=== PATIENT | male | born 1945 | race Caucasian/White ===

== ENCOUNTER 2021-10-28 17:09 | Inpatient (IN) ==
[2021-10-28] MEDS ORDERED: ONDANSETRON 4 MG/2 ML VIAL IV PRN (17:30)
[2021-10-28] MEDS ORDERED: MAGNESIUM HYDROXIDE SUSP 30 ML UDCUP PO PRN (17:30)
[2021-10-28] MEDS ORDERED: ACETAMINOPHEN 325 MG TABLET PO PRN (17:30)
[2021-10-28] MEDS ORDERED: ZALEPLON 5 MG CAPSULE PO PRN (17:44)
[2021-10-28] MEDS ORDERED: LEVOFLOXACIN INJ 750 MG/150 ML PREMIX IV SCH (18:00)
[2021-10-28 18:50] LABS: Basophils # 0.1 10*3/uL (0.0-0.2); Basophils % 0.8 % (0.0-0.8); Eosinophils % 0.3 % (0.00-10.9); Hematocrit 42.1 VOL% (42.0-52.0); Hemoglobin 13.4 GM/DL (14.0-18.0); Immature Granulocytes % 0.6 %; Immature Granulocytes Absolute 0.05 #; Lymphocytes # 0.9 10*3/uL (1.4-4.0); Lymphocytes % 11.2 % (21.2-54.2); Mean Corpuscular HGB Conc 31.8 GM/DL (32-36); Mean Corpuscular Volume 93.3 FL (87-102); Mean Platelet Volume 10.7 FL (9.6-12.0); Monocytes % 12.9 % (1.7-12.7); Neutrophils % 74.2 % (38.7-73.9); Platelet Count 160 T/CUMM (130-400); Red Blood Count 4.51 MC/CUMM (3.8-5.5); Red Cell Distribution Width 15.2 % (9.3-17.3); White Blood Count 7.7 T/CUMM (4-12)
[2021-10-28 19:08] LABS: Albumin 2.7 G/DL (3.4-5.0); Bilirubin,Total 1.4 MG/DL (0.20-1.00); Calcium 8.5 MG/DL (8.5-10.1); Osmolality,Calculated 278.7 MOS/KG (273-304); Potassium 4.3 MMOL/L (3.5-5.1)
[2021-10-28] MEDS: DEXTROSE 5% NACL 0.45% 1,000 ML IV SCH (19:31)
[2021-10-28] MEDS: CARBIDOPA/LEVODOPA CR 25-100 MG TABLET PO SCH (21:40)
[2021-10-28] MEDS: AMIODARONE 200 MG TABLET PO SCH (21:40)
[2021-10-28] MEDS: DOCUSATE SODIUM 100 MG CAPSULE PO SCH (21:41)
[2021-10-28] MEDS: ATORVASTATIN 10 MG TABLET PO SCH (21:41)
[2021-10-28] MEDS: cefTRIAXone 1,000 MG in SODIUM CHLORIDE 0.9% 100 ML IV SCH (21:44)
[2021-10-29 01:19] LABS: Bilirubin,Urine Negative (Negative); Blood, Urine Small mg/dL (Negative); Glucose,Urine (UA) Negative (Negative); Hyaline Casts,Urine 1 /LPF (0-3); Ketones,Urine Negative (Negative); Mucus,Urine Occasional /LPF (Occasional); Nitrite,Urine Negative (Negative); Protein,Urine 100 MG/DL; RBC,Urine 5 /HPF (0-4); Squamous Epithelial Cell,Urine Occasional /HPF (0-10); Urine Appearance CLEAR (Clear); Urine Color Amber (Yellow); Urine Specific Gravity 1.024 (1.001-1.035)
[2021-10-29] MEDS: DEXTROSE 5% NACL 0.45% 1,000 ML IV SCH (05:50)
[2021-10-29 06:27] LABS: Basophils # 0.1 10*3/uL (0.0-0.2); Basophils % 0.8 % (0.0-0.8); Eosinophils # 0.1 10*3/uL (0.0-0.87); Eosinophils % 1.2 % (0.00-10.9); Hematocrit 38.6 VOL% (42.0-52.0); Hemoglobin 12.5 GM/DL (14.0-18.0); Immature Granulocytes % 0.6 %; Immature Granulocytes Absolute 0.04 #; Lymphocytes # 1.5 10*3/uL (1.4-4.0); Lymphocytes % 22.8 % (21.2-54.2); Mean Corpuscular HGB Conc 32.4 GM/DL (32-36); Mean Corpuscular Volume 94.1 FL (87-102); Mean Platelet Volume 10.3 FL (9.6-12.0); Neutrophils % 55.6 % (38.7-73.9); Platelet Count 155 T/CUMM (130-400); Red Cell Distribution Width 15.1 % (9.3-17.3); White Blood Count 6.5 T/CUMM (4-12)
[2021-10-29 06:37] LABS: INR 1.9; PT Patient Result 20.1 SECS (10.5-12.0)
[2021-10-29 06:53] LABS: Albumin 2.4 G/DL (3.4-5.0); Bilirubin,Total 1.6 MG/DL (0.20-1.00); Calcium 8.3 MG/DL (8.5-10.1); Osmolality,Calculated 282.3 MOS/KG (273-304); Potassium 3.1 MMOL/L (3.5-5.1); Total Protein 6.2 G/DL (6.4-8.2)
[2021-10-29 06:54] LABS: Risk Ratio 3.92; VLDL Cholesterol 19.2 MG/DL
[2021-10-29 06:55] LABS: Atypical Lymphocytes Few; Eosinophils 4 % (0-10); Hypochromasia Slight; Lymphocytes 19 % (20-55); Microcytosis Slight; Platelet Estimate Adequate; Segmented Neutrophils 61 % (50-85); Total Cells Counted 100
[2021-10-29] MEDS: WARFARIN 5 MG TABLET PO SCH ×2 (09:01→17:04)
[2021-10-29 09:19] LABS: Hepatitis B Core IgM Quant 0.14 Index; Hepatitis B Surface Ag Quant < 0.10 Index; Hepatitis B Surface Ag Result Non-Reactive (NonReactive); Hepatitis C Virus Ab Quant 0.14 Index; Hepatitis C Virus Ab Result Non-Reactive (NonReactive)
[2021-10-29] MEDS: METOPROLOL TARTRATE 50 MG TABLET PO SCH (09:53)
[2021-10-29] MEDS: AMIODARONE 200 MG TABLET PO SCH ×2 (09:53→20:36)
[2021-10-29] MEDS: PANTOPRAZOLE 40 MG TABLET PO SCH (09:53)
[2021-10-29] MEDS: POTASSIUM CHLORIDE 20 MEQ TABLET PO SCH ×2 (09:53→20:24)
[2021-10-29] MEDS: LOSARTAN 50 MG TABLET PO SCH (09:53)
[2021-10-29] MEDS: MULTIVITAMIN (OCUVITE) TABLET PO SCH (09:53)
[2021-10-29] MEDS: DOCUSATE SODIUM 100 MG CAPSULE PO SCH ×2 (09:53→20:24)
[2021-10-29] MEDS: POTASSIUM CHLORIDE RIDER 10 MEQ/100 ML PREMIX IV SCH ×3 (09:54→14:34)
[2021-10-29] MEDS: ASPIRIN EC 81 MG TABLET PO SCH (09:54)
[2021-10-29] MEDS ORDERED: POTASSIUM CHLORIDE RIDER 10 MEQ/100 ML PREMIX IV SCH (14:30)
[2021-10-29] MEDS: DEXT 5% NACL 0.45% KCL 20 MEQ 20 MEQ/1,000 ML BAG IV SCH ×2 (16:36→20:36)
[2021-10-29] MEDS: ATORVASTATIN 10 MG TABLET PO SCH (20:24)
[2021-10-29] MEDS: cefTRIAXone 1,000 MG in SODIUM CHLORIDE 0.9% 100 ML IV SCH (20:24)
[2021-10-29] MEDS: CARBIDOPA/LEVODOPA CR 25-100 MG TABLET PO SCH (20:24)
[2021-10-30] MEDS: DEXT 5% NACL 0.45% KCL 20 MEQ 20 MEQ/1,000 ML BAG IV SCH ×5 (03:05→23:05)
[2021-10-30 06:04] LABS: INR 1.7; PT Patient Result 18.5 SECS (10.5-12.0)
[2021-10-30 06:05] LABS: Basophils # 0.1 10*3/uL (0.0-0.2); Basophils % 0.9 % (0.0-0.8); Eosinophils # 0.2 10*3/uL (0.0-0.87); Eosinophils % 2.2 % (0.00-10.9); Hematocrit 37.6 VOL% (42.0-52.0); Hemoglobin 12.5 GM/DL (14.0-18.0); Immature Granulocytes % 0.8 %; Immature Granulocytes Absolute 0.06 #; Lymphocytes # 2.4 10*3/uL (1.4-4.0); Lymphocytes % 30.1 % (21.2-54.2); Mean Corpuscular HGB Conc 33.2 GM/DL (32-36); Mean Corpuscular Volume 94.2 FL (87-102); Mean Platelet Volume 10.7 FL (9.6-12.0); Monocytes % 18.6 % (1.7-12.7); Neutrophils % 47.4 % (38.7-73.9); Platelet Count 148 T/CUMM (130-400); Red Blood Count 3.99 MC/CUMM (3.8-5.5); Red Cell Distribution Width 15.1 % (9.3-17.3); White Blood Count 7.9 T/CUMM (4-12)
[2021-10-30 06:18] LABS: Albumin 2.2 G/DL (3.4-5.0); Bilirubin,Total 1.4 MG/DL (0.20-1.00); Osmolality,Calculated 277.5 MOS/KG (273-304); Potassium 3.9 MMOL/L (3.5-5.1); Total Protein 5.9 G/DL (6.4-8.2)
[2021-10-30 06:34] LABS: Band Neutrophils 1 % (0-10); Eosinophils 3 % (0-10); Hypochromasia Slight; Lymphocytes 24 % (20-55); Microcytosis Slight; Platelet Estimate Adequate; Segmented Neutrophils 60 % (50-85); Total Cells Counted 100
[2021-10-30 06:35] LABS: Atypical Lymphocytes Few
[2021-10-30] MEDS: METOPROLOL TARTRATE 50 MG TABLET PO SCH (10:01)
[2021-10-30] MEDS: MULTIVITAMIN (OCUVITE) TABLET PO SCH (10:01)
[2021-10-30] MEDS: LEVOTHYROXINE 100 MCG TABLET PO SCH (10:01)
[2021-10-30] MEDS: POTASSIUM CHLORIDE 20 MEQ TABLET PO SCH ×2 (10:01→20:08)
[2021-10-30] MEDS: LOSARTAN 50 MG TABLET PO SCH (10:02)
[2021-10-30] MEDS: DOCUSATE SODIUM 100 MG CAPSULE PO SCH ×2 (10:02→20:08)
[2021-10-30] MEDS: AMIODARONE 200 MG TABLET PO SCH ×2 (10:02→20:09)
[2021-10-30] MEDS: PANTOPRAZOLE 40 MG TABLET PO SCH (10:02)
[2021-10-30] MEDS: ASPIRIN EC 81 MG TABLET PO SCH (10:02)
[2021-10-30] MEDS ORDERED: BISACODYL 5 MG TABLET PO ONE (13:05)
[2021-10-30] MEDS ORDERED: LACTULOSE 20 GM/30 ML UDCUP PO ONE ×2 (13:05→19:30)
[2021-10-30 13:46] LABS: Mycoplasma pneumoniae Ab Inter SEE COMMENTS; Mycoplasma pneumoniae Ab, IgG Positive (Negative); Mycoplasma pneumoniae Ab, IgM Negative (Negative)
[2021-10-30] MEDS: WARFARIN 5 MG TABLET PO SCH (18:20)
[2021-10-30] MEDS: CARBIDOPA/LEVODOPA CR 25-100 MG TABLET PO SCH (20:08)
[2021-10-30] MEDS: ATORVASTATIN 10 MG TABLET PO SCH (20:08)
[2021-10-30] MEDS: cefTRIAXone 1,000 MG in SODIUM CHLORIDE 0.9% 100 ML IV SCH (20:09)
[2021-10-31 05:14] LABS: Basophils # 0.1 10*3/uL (0.0-0.2); Basophils % 0.7 % (0.0-0.8); Eosinophils # 0.3 10*3/uL (0.0-0.87); Eosinophils % 2.9 % (0.00-10.9); Hematocrit 37.2 VOL% (42.0-52.0); Immature Granulocytes % 0.6 %; Immature Granulocytes Absolute 0.05 #; Lymphocytes # 2.6 10*3/uL (1.4-4.0); Lymphocytes % 30.4 % (21.2-54.2); Mean Corpuscular HGB Conc 32.3 GM/DL (32-36); Mean Corpuscular Volume 95.1 FL (87-102); Monocytes % 12.6 % (1.7-12.7); Neutrophils % 52.8 % (38.7-73.9); Platelet Count 144 T/CUMM (130-400); Red Blood Count 3.91 MC/CUMM (3.8-5.5); Red Cell Distribution Width 15.1 % (9.3-17.3); White Blood Count 8.5 T/CUMM (4-12)
[2021-10-31 05:16] LABS: INR 1.6; PT Patient Result 17.7 SECS (10.5-12.0)
[2021-10-31 05:36] LABS: Albumin 2.2 G/DL (3.4-5.0); Bilirubin,Total 1.2 MG/DL (0.20-1.00); Calcium 7.8 MG/DL (8.5-10.1); Osmolality,Calculated 282.1 MOS/KG (273-304); Potassium 4.2 MMOL/L (3.5-5.1); Total Protein 5.8 G/DL (6.4-8.2)
[2021-10-31 05:43] LABS: Eosinophils 3 % (0-10); Hypochromasia Slight; Lymphocytes 25 % (20-55); Microcytosis Slight; Ovalocytes Slight; Platelet Estimate Adequate; Segmented Neutrophils 63 % (50-85); Total Cells Counted 100
[2021-10-31] MEDS: LEVOTHYROXINE 100 MCG TABLET PO SCH (05:45)
[2021-10-31] MEDS ORDERED: cefTRIAXone 1,000 MG in SODIUM CHLORIDE 0.9% 100 ML IV ONE (08:30)
[2021-10-31] MEDS: PANTOPRAZOLE 40 MG TABLET PO SCH (09:25)
[2021-10-31] MEDS: LOSARTAN 50 MG TABLET PO SCH (09:25)
[2021-10-31] MEDS: ASPIRIN EC 81 MG TABLET PO SCH (09:25)
[2021-10-31] MEDS: METOPROLOL TARTRATE 50 MG TABLET PO SCH (09:25)
[2021-10-31] MEDS: MULTIVITAMIN (OCUVITE) TABLET PO SCH (09:25)
[2021-10-31] MEDS: AMIODARONE 200 MG TABLET PO SCH (09:25)
[2021-10-31] MEDS: DOCUSATE SODIUM 100 MG CAPSULE PO SCH (09:25)
[2021-10-31] MEDS: POTASSIUM CHLORIDE 20 MEQ TABLET PO SCH (09:26)
[2021-10-31 12:18] VITALS: BP 156/80
[2021-10-31] MEDS: DEXT 5% NACL 0.45% KCL 20 MEQ 20 MEQ/1,000 ML BAG IV SCH (12:29)
[2021-10-31] MEDS ORDERED: DOXAZOSIN 1 MG TABLET PO SCH (21:00)
== END 2021-10-31 12:47 | disposition home or self-care (01) | DRG 866 ==
LOC: N.TELEN 17:36
PROVIDERS: ADMIT Family Medicine; ATTEND Family Medicine

== ENCOUNTER 2021-11-07 08:01 | Inpatient (IN) ==
[~2021-11-07 08:01] MED LIST: LACTATED RINGERS 1,000 ML IV SCH
[2021-11-07 08:32] LABS: Basophils # 0.1 10*3/uL (0.0-0.2); Basophils % 0.7 % (0.0-0.8); Eosinophils # 0.2 10*3/uL (0.0-0.87); Eosinophils % 1.5 % (0.00-10.9); Hematocrit 42.2 VOL% (42.0-52.0); Hemoglobin 13.3 GM/DL (14.0-18.0); Immature Granulocytes % 1.4 %; Immature Granulocytes Absolute 0.16 #; Lymphocytes # 1.9 10*3/uL (1.4-4.0); Lymphocytes % 16.6 % (21.2-54.2); Mean Corpuscular HGB Conc 31.5 GM/DL (32-36); Mean Corpuscular Volume 95.3 FL (87-102); Mean Platelet Volume 10.2 FL (9.6-12.0); Monocytes % 12.6 % (1.7-12.7); Neutrophils % 67.2 % (38.7-73.9); Platelet Count 264 T/CUMM (130-400); Red Blood Count 4.43 MC/CUMM (3.8-5.5); Red Cell Distribution Width 15.5 % (9.3-17.3); White Blood Count 11.6 T/CUMM (4-12)
[2021-11-07] MEDS ORDERED: DIAZEPAM 5 MG TABLET PO ONE (08:33)
[2021-11-07] MEDS ORDERED: GABAPENTIN 400 MG CAPSULE PO ONE (08:33)
[2021-11-07] MEDS ORDERED: ACETAMINOPHEN 500 MG TABLET PO ONE (08:33)
[2021-11-07] MEDS ORDERED: FAMOTIDINE 20 MG TABLET PO ONE (08:33)
[2021-11-07 08:41] LABS: INR 1.1; PT Patient Result 12.3 SECS (10.5-12.0); Partial Thromboplastin Time 29.9 SECS (23.8-32.1)
[2021-11-07 08:58] LABS: Calcium 8.7 MG/DL (8.5-10.1); Osmolality,Calculated 284.1 MOS/KG (273-304); Potassium 4.3 MMOL/L (3.5-5.1)
[2021-11-07] MEDS ORDERED: ALVIMOPAN 12 MG CAPSULE PO ONE (08:58)
[2021-11-07] MEDS ORDERED: GENTAMICIN 80 MG/2 ML VIAL ONE (09:01)
[2021-11-07] MEDS ORDERED: BUPIVACAINE MPF 0.25% 30 ML VIAL ONE (09:16)
[2021-11-07] MEDS ORDERED: fentaNYL 100 MCG/2 ML VIAL ONE (09:17)
[2021-11-07] MEDS ORDERED: LIDOCAINE 1% 5 ML VIAL ONE (09:17)
[2021-11-07] MEDS ORDERED: MIDAZOLAM 2 MG/2 ML VIAL ONE (09:17)
[2021-11-07] MEDS ORDERED: DEXAMETHASONE 4 MG/1 ML VIAL ONE ×2 (09:17→11:26)
[2021-11-07] MEDS ORDERED: ONDANSETRON 4 MG/2 ML VIAL IV PRN ×2 (09:41→13:46)
[2021-11-07] MEDS ORDERED: diphenhydrAMINE 50 MG/1 ML VIAL IV PRN (09:41)
[2021-11-07] MEDS ORDERED: PROMETHAZINE 25 MG/1 ML VIAL IM PRN (09:41)
[2021-11-07] MEDS ORDERED: LACTULOSE 20 GM/30 ML UDCUP PO PRN (09:41)
[2021-11-07] MEDS ORDERED: HYDROmorphone 2 MG/1 ML VIAL IV PRN ×2 (09:41→13:46)
[2021-11-07] MEDS: LACTATED RINGERS 1,000 ML IV SCH ×2 (09:53→11:31)
[2021-11-07] MEDS ORDERED: ePHEDrine 50 MG/ML VIAL ONE (10:20)
[2021-11-07 11:16] LABS: Bilirubin,Urine Negative (Negative); Blood, Urine Moderate mg/dL (Negative); Glucose,Urine (UA) Negative (Negative); Ketones,Urine Negative (Negative); Mucus,Urine Occasional /LPF (Occasional); Nitrite,Urine Negative (Negative); Protein,Urine 30 MG/DL; RBC,Urine 7 /HPF (0-4); Squamous Epithelial Cell,Urine Occasional /HPF (0-10); Urine Appearance CLEAR (Clear); Urine Color Yellow (Yellow); Urine Specific Gravity 1.017 (1.001-1.035)
[2021-11-07] MEDS ORDERED: SODIUM CHLORIDE 0.9% 100 ML IV ONE (11:25)
[2021-11-07] MEDS ORDERED: LACTATED RINGERS 1,000 ML IV ONE (11:25)
[2021-11-07] MEDS ORDERED: GLYCOPYRROLATE 0.4 MG/2 ML VIAL ONE (11:26)
[2021-11-07] MEDS ORDERED: ROCURONIUM 50 MG/5 ML VIAL IV ONE ×2 (11:26→11:31)
[2021-11-07] MEDS ORDERED: propofoL 200 MG/20 ML VIAL IV ONE (11:26)
[2021-11-07] MEDS ORDERED: ETOMIDATE 40 MG/20 ML VIAL IV ONE (11:26)
[2021-11-07] MEDS ORDERED: LIDOCAINE 2% 5 ML VIAL ONE (11:26)
[2021-11-07] MEDS ORDERED: SEVOFLURANE 1 UNIT/15 MINUTE INH ONE ×6 (11:26→13:24)
[2021-11-07] MEDS ORDERED: ONDANSETRON 4 MG/2 ML VIAL ONE (11:26)
[2021-11-07] MEDS ORDERED: EPINEPHrine 1 MG/ML VIAL ONE (11:26)
[2021-11-07] MEDS ORDERED: ACETAMINOPHEN INJ 1,000 MG/100 ML VIAL IV ONE (11:26)
[2021-11-07] MEDS ORDERED: ROPIVACAINE 0.5% 30 ML VIAL ONE (12:40)
[2021-11-07] MEDS ORDERED: SUGAMMADEX 200 MG/2 ML VIAL IV ONE (12:55)
[2021-11-07 14:45] LABS: Basophils % 0.5 % (0.0-0.8); Eosinophils % 0.2 % (0.00-10.9); Hematocrit 38.4 VOL% (42.0-52.0); Hemoglobin 12.2 GM/DL (14.0-18.0); Immature Granulocytes % 1.6 %; Immature Granulocytes Absolute 0.14 #; Lymphocytes # 0.5 10*3/uL (1.4-4.0); Lymphocytes % 6.1 % (21.2-54.2); Mean Corpuscular HGB Conc 31.8 GM/DL (32-36); Mean Corpuscular Volume 95.5 FL (87-102); Monocytes % 2.4 % (1.7-12.7); Neutrophils % 89.2 % (38.7-73.9); Platelet Count 183 T/CUMM (130-400); Red Blood Count 4.02 MC/CUMM (3.8-5.5); Red Cell Distribution Width 15.6 % (9.3-17.3); White Blood Count 8.8 T/CUMM (4-12)
[2021-11-07 14:54] LABS: Calcium 8.4 MG/DL (8.5-10.1); Osmolality,Calculated 285.3 MOS/KG (273-304)
[2021-11-07] MEDS: ACETAMINOPHEN 325 MG TABLET PO SCH ×3 (15:30→20:14)
[2021-11-07] MEDS: SODIUM CHLORIDE 0.9% 1,000 ML IV SCH (17:16)
[2021-11-07] MEDS: PRAMIPEXOLE 0.25 MG TABLET PO SCH (21:14)
[2021-11-07] MEDS: ALVIMOPAN 12 MG CAPSULE PO SCH (21:14)
[2021-11-07] MEDS: ATORVASTATIN 10 MG TABLET PO SCH (21:14)
[2021-11-07] MEDS: DOCUSATE SODIUM 100 MG CAPSULE PO SCH (21:14)
[2021-11-07] MEDS: AMIODARONE 200 MG TABLET PO SCH (21:14)
[2021-11-07] MEDS: oxyCODONE/ACETAMINOPHEN 5-325 MG TABLET PO PRN (21:14)
[2021-11-08 03:04] LABS: Basophils % 0.1 % (0.0-0.8); Hemoglobin 11.6 GM/DL (14.0-18.0); Immature Granulocytes % 0.7 %; Lymphocytes # 0.8 10*3/uL (1.4-4.0); Lymphocytes % 5.1 % (21.2-54.2); Mean Corpuscular HGB Conc 32.2 GM/DL (32-36); Mean Corpuscular Volume 95.5 FL (87-102); Mean Platelet Volume 10.3 FL (9.6-12.0); Monocytes % 10.7 % (1.7-12.7); Neutrophils % 83.4 % (38.7-73.9); Platelet Count 171 T/CUMM (130-400); Red Blood Count 3.77 MC/CUMM (3.8-5.5); Red Cell Distribution Width 15.3 % (9.3-17.3); White Blood Count 14.7 T/CUMM (4-12)
[2021-11-08 03:17] LABS: Calcium 8.5 MG/DL (8.5-10.1); Osmolality,Calculated 279.8 MOS/KG (273-304); Potassium 4.5 MMOL/L (3.5-5.1)
[2021-11-08] MEDS: SODIUM CHLORIDE 0.9% 1,000 ML IV SCH ×3 (03:51→10:18)
[2021-11-08] MEDS: ACETAMINOPHEN 325 MG TABLET PO SCH ×4 (04:39→21:46)
[2021-11-08] MEDS: LEVOTHYROXINE 100 MCG TABLET PO SCH (06:13)
[2021-11-08] MEDS: DOCUSATE SODIUM 100 MG CAPSULE PO SCH ×2 (09:11→21:46)
[2021-11-08] MEDS: ALVIMOPAN 12 MG CAPSULE PO SCH ×2 (09:11→21:46)
[2021-11-08] MEDS: METOPROLOL TARTRATE 50 MG TABLET PO SCH (09:11)
[2021-11-08] MEDS: ASPIRIN EC 81 MG TABLET PO SCH (09:11)
[2021-11-08] MEDS: AMIODARONE 200 MG TABLET PO SCH ×2 (09:11→21:46)
[2021-11-08] MEDS: oxyCODONE/ACETAMINOPHEN 5-325 MG TABLET PO PRN ×3 (09:17→19:47)
[2021-11-08 11:54] LABS: Basophils % 0.1 % (0.0-0.8); Hematocrit 39.6 VOL% (42.0-52.0); Hemoglobin 12.6 GM/DL (14.0-18.0); Immature Granulocytes % 0.7 %; Immature Granulocytes Absolute 0.12 #; Lymphocytes % 5.7 % (21.2-54.2); Mean Corpuscular HGB Conc 31.8 GM/DL (32-36); Mean Corpuscular Volume 95.4 FL (87-102); Mean Platelet Volume 10.6 FL (9.6-12.0); Monocytes % 13.4 % (1.7-12.7); Neutrophils % 80.1 % (38.7-73.9); Platelet Count 206 T/CUMM (130-400); Red Blood Count 4.15 MC/CUMM (3.8-5.5); Red Cell Distribution Width 15.4 % (9.3-17.3)
[2021-11-08] MEDS: MECLIZINE 25 MG TABLET PO PRN (16:30)
[2021-11-08] MEDS: ATORVASTATIN 10 MG TABLET PO SCH (21:46)
[2021-11-08] MEDS: PRAMIPEXOLE 0.25 MG TABLET PO SCH (21:46)
[2021-11-09] MEDS: ACETAMINOPHEN 325 MG TABLET PO SCH ×2 (04:36→09:01)
[2021-11-09 05:45] LABS: Basophils % 0.3 % (0.0-0.8); Eosinophils % 0.2 % (0.00-10.9); Hemoglobin 12.5 GM/DL (14.0-18.0); Immature Granulocytes % 0.7 %; Lymphocytes # 1.1 10*3/uL (1.4-4.0); Lymphocytes % 7.5 % (21.2-54.2); Mean Corpuscular HGB Conc 32.1 GM/DL (32-36); Mean Corpuscular Volume 95.8 FL (87-102); Monocytes % 12.9 % (1.7-12.7); Neutrophils % 78.4 % (38.7-73.9); Platelet Count 179 T/CUMM (130-400); Red Blood Count 4.07 MC/CUMM (3.8-5.5); Red Cell Distribution Width 15.8 % (9.3-17.3); White Blood Count 14.3 T/CUMM (4-12)
[2021-11-09 06:04] LABS: Calcium 8.3 MG/DL (8.5-10.1); Osmolality,Calculated 277.8 MOS/KG (273-304); Potassium 4.3 MMOL/L (3.5-5.1)
[2021-11-09 06:15] LABS: Hypochromasia Slight; Lymphocytes 5 % (20-55); Microcytosis Slight; Ovalocytes Slight; Platelet Estimate Adequate; Segmented Neutrophils 87 % (50-85); Total Cells Counted 100
[2021-11-09] MEDS: METOPROLOL TARTRATE 50 MG TABLET PO SCH (08:58)
[2021-11-09] MEDS: LEVOTHYROXINE 100 MCG TABLET PO SCH (08:58)
[2021-11-09] MEDS: ASPIRIN EC 81 MG TABLET PO SCH (08:58)
[2021-11-09] MEDS: DOCUSATE SODIUM 100 MG CAPSULE PO SCH ×2 (08:58→21:05)
[2021-11-09] MEDS: MECLIZINE 25 MG TABLET PO PRN ×2 (08:58→22:02)
[2021-11-09] MEDS: AMIODARONE 200 MG TABLET PO SCH ×2 (08:58→21:05)
[2021-11-09] MEDS: ALVIMOPAN 12 MG CAPSULE PO SCH ×2 (08:58→21:05)
[2021-11-09] MEDS: oxyCODONE/ACETAMINOPHEN 5-325 MG TABLET PO PRN (08:59)
[2021-11-09 10:20] LABS: Albumin 2.2 G/DL (3.4-5.0); Bilirubin,Direct 0.68 MG/DL (0.0-0.20); Bilirubin,Indirect 1.2 MG/DL (0.0-1.0); Bilirubin,Total 1.9 MG/DL (0.20-1.00); Total Protein 5.6 G/DL (6.4-8.2)
[2021-11-09] MEDS: HEPARIN 5,000 UNIT/1 ML VIAL SUBCUT SCH ×2 (12:17→18:44)
[2021-11-09] MEDS: LACTULOSE 20 GM/30 ML UDCUP PO SCH ×2 (16:22→21:04)
[2021-11-09] MEDS: ATORVASTATIN 10 MG TABLET PO SCH (21:04)
[2021-11-09] MEDS: PRAMIPEXOLE 0.25 MG TABLET PO SCH (21:05)
[2021-11-10] MEDS: HEPARIN 5,000 UNIT/1 ML VIAL SUBCUT SCH ×3 (03:04→17:35)
[2021-11-10 03:21] LABS: Basophils % 0.3 % (0.0-0.8); Eosinophils % 0.3 % (0.00-10.9); Hematocrit 37.8 VOL% (42.0-52.0); Hemoglobin 12.4 GM/DL (14.0-18.0); Immature Granulocytes % 0.8 %; Immature Granulocytes Absolute 0.09 #; Lymphocytes # 1.2 10*3/uL (1.4-4.0); Lymphocytes % 10.1 % (21.2-54.2); Mean Corpuscular HGB Conc 32.8 GM/DL (32-36); Mean Corpuscular Volume 93.6 FL (87-102); Mean Platelet Volume 10.8 FL (9.6-12.0); Monocytes % 10.7 % (1.7-12.7); Neutrophils % 77.8 % (38.7-73.9); Platelet Count 177 T/CUMM (130-400); Red Blood Count 4.04 MC/CUMM (3.8-5.5); Red Cell Distribution Width 15.8 % (9.3-17.3)
[2021-11-10 03:40] LABS: Calcium 8.4 MG/DL (8.5-10.1); Osmolality,Calculated 274.1 MOS/KG (273-304); Potassium 3.9 MMOL/L (3.5-5.1)
[2021-11-10] MEDS: LEVOTHYROXINE 100 MCG TABLET PO SCH (07:05)
[2021-11-10] MEDS ORDERED: ALBUTEROL 1.25 MG/3 ML NEB RESP TX PRN (07:09)
[2021-11-10 07:26] LABS: Bilirubin,Direct 1.12 MG/DL (0.0-0.20); Bilirubin,Indirect 1.4 MG/DL (0.0-1.0); Bilirubin,Total 2.5 MG/DL (0.20-1.00); Total Protein 6.1 G/DL (6.4-8.2)
[2021-11-10] MEDS: LACTULOSE 20 GM/30 ML UDCUP PO SCH ×3 (11:07→20:51)
[2021-11-10] MEDS: DOCUSATE SODIUM 100 MG CAPSULE PO SCH ×2 (11:07→20:53)
[2021-11-10] MEDS: AMIODARONE 200 MG TABLET PO SCH ×2 (11:07→20:51)
[2021-11-10] MEDS: ASPIRIN EC 81 MG TABLET PO SCH (11:07)
[2021-11-10] MEDS: METOPROLOL TARTRATE 50 MG TABLET PO SCH (11:07)
[2021-11-10] MEDS: PRAMIPEXOLE 0.25 MG TABLET PO SCH (20:51)
[2021-11-10] MEDS: ATORVASTATIN 10 MG TABLET PO SCH (20:53)
[2021-11-11] MEDS: HEPARIN 5,000 UNIT/1 ML VIAL SUBCUT SCH ×3 (01:40→18:48)
[2021-11-11] MEDS: LEVOTHYROXINE 100 MCG TABLET PO SCH ×2 (05:27→05:46)
[2021-11-11 07:33] LABS: Basophils % 0.3 % (0.0-0.8); Eosinophils # 0.1 10*3/uL (0.0-0.87); Eosinophils % 0.7 % (0.00-10.9); Hematocrit 39.7 VOL% (42.0-52.0); Hemoglobin 12.9 GM/DL (14.0-18.0); Immature Granulocytes % 0.7 %; Immature Granulocytes Absolute 0.07 #; Lymphocytes % 10.1 % (21.2-54.2); Mean Corpuscular HGB Conc 32.5 GM/DL (32-36); Mean Platelet Volume 10.2 FL (9.6-12.0); Monocytes % 12.1 % (1.7-12.7); Neutrophils % 76.1 % (38.7-73.9); Platelet Count 230 T/CUMM (130-400); Red Blood Count 4.27 MC/CUMM (3.8-5.5); Red Cell Distribution Width 15.9 % (9.3-17.3); White Blood Count 10.2 T/CUMM (4-12)
[2021-11-11 08:00] LABS: Albumin 1.9 G/DL (3.4-5.0); Bilirubin,Total 2.8 MG/DL (0.20-1.00); Calcium 8.5 MG/DL (8.5-10.1); Osmolality,Calculated 282.4 MOS/KG (273-304); Potassium 4.2 MMOL/L (3.5-5.1); Total Protein 6.3 G/DL (6.4-8.2)
[2021-11-11 08:05] LABS: Free T4 (Free Thyroxine) 1.71 NG/DL (0.76-1.46); Thyroid Stimulating Hormone 3.81 uIU/ml (0.358-3.74)
[2021-11-11 08:12] LABS: Ferritin 437.4 ng/mL (26-388)
[2021-11-11] MEDS ORDERED: LACTULOSE 20 GM/30 ML UDCUP PO PRN (08:36)
[2021-11-11 09:07] LABS: Hepatitis B Core IgM Quant 0.16 Index; Hepatitis B Surface Ag Quant < 0.10 Index; Hepatitis B Surface Ag Result Non-Reactive (NonReactive); Hepatitis C Virus Ab Quant 0.13 Index; Hepatitis C Virus Ab Result Non-Reactive (NonReactive)
[2021-11-11] MEDS: AMIODARONE 200 MG TABLET PO SCH ×2 (10:37→20:31)
[2021-11-11] MEDS: METOPROLOL TARTRATE 50 MG TABLET PO SCH (10:37)
[2021-11-11] MEDS: ASPIRIN EC 81 MG TABLET PO SCH (10:37)
[2021-11-11] MEDS: DOCUSATE SODIUM 100 MG CAPSULE PO SCH ×2 (10:37→20:31)
[2021-11-11 12:22] LABS: Bilirubin BF 0.7 mg/dL; Bilirubin Fluid Type SEE COMMENTS
[2021-11-11] MEDS: WARFARIN 5 MG TABLET PO SCH (18:47)
[2021-11-11] MEDS: ATORVASTATIN 10 MG TABLET PO SCH (20:31)
[2021-11-11] MEDS: PRAMIPEXOLE 0.25 MG TABLET PO SCH (20:31)
[2021-11-12] MEDS: HEPARIN 5,000 UNIT/1 ML VIAL SUBCUT SCH ×3 (01:13→17:39)
[2021-11-12] MEDS: LEVOTHYROXINE 100 MCG TABLET PO SCH ×2 (05:10→05:45)
[2021-11-12 05:46] LABS: Basophils % 0.4 % (0.0-0.8); Eosinophils # 0.2 10*3/uL (0.0-0.87); Eosinophils % 2.2 % (0.00-10.9); Hematocrit 40.1 VOL% (42.0-52.0); Immature Granulocytes % 1.7 %; Immature Granulocytes Absolute 0.17 #; Lymphocytes # 1.5 10*3/uL (1.4-4.0); Lymphocytes % 15.4 % (21.2-54.2); Mean Corpuscular HGB Conc 32.4 GM/DL (32-36); Mean Corpuscular Volume 92.6 FL (87-102); Mean Platelet Volume 10.2 FL (9.6-12.0); Monocytes % 12.9 % (1.7-12.7); Neutrophils % 67.4 % (38.7-73.9); Platelet Count 267 T/CUMM (130-400); Red Blood Count 4.33 MC/CUMM (3.8-5.5); Red Cell Distribution Width 15.9 % (9.3-17.3)
[2021-11-12 05:49] LABS: INR 1.2; PT Patient Result 12.8 SECS (10.5-12.0)
[2021-11-12 06:17] LABS: Albumin 1.9 G/DL (3.4-5.0); Bilirubin,Total 2.2 MG/DL (0.20-1.00); Calcium 8.8 MG/DL (8.5-10.1); Osmolality,Calculated 276.8 MOS/KG (273-304); Potassium 3.7 MMOL/L (3.5-5.1); Total Protein 6.2 G/DL (6.4-8.2)
[2021-11-12] MEDS ORDERED: amLODIPine 5 MG TABLET PO SCH (09:00)
[2021-11-12] MEDS: METOPROLOL TARTRATE 50 MG TABLET PO SCH (09:25)
[2021-11-12] MEDS: DOCUSATE SODIUM 100 MG CAPSULE PO SCH ×2 (09:25→20:08)
[2021-11-12] MEDS: AMIODARONE 200 MG TABLET PO SCH ×2 (09:26→20:09)
[2021-11-12] MEDS: ASPIRIN EC 81 MG TABLET PO SCH (09:26)
[2021-11-12] MEDS: TRIAMCINOLONE 0.1% CREAM 15 GM TUBE TOP SCH ×2 (09:27→20:09)
[2021-11-12] MEDS: WARFARIN 5 MG TABLET PO SCH (17:41)
[2021-11-12] MEDS: ATORVASTATIN 10 MG TABLET PO SCH (20:09)
[2021-11-12] MEDS: PRAMIPEXOLE 0.25 MG TABLET PO SCH (20:09)
[2021-11-13] MEDS: HEPARIN 5,000 UNIT/1 ML VIAL SUBCUT SCH (01:49)
[2021-11-13] MEDS: LEVOTHYROXINE 100 MCG TABLET PO SCH (05:33)
[2021-11-13 06:02] LABS: Basophils # 0.1 10*3/uL (0.0-0.2); Basophils % 0.8 % (0.0-0.8); Eosinophils # 0.2 10*3/uL (0.0-0.87); Eosinophils % 1.9 % (0.00-10.9); Hematocrit 37.8 VOL% (42.0-52.0); Hemoglobin 12.5 GM/DL (14.0-18.0); Immature Granulocytes % 3.6 %; Immature Granulocytes Absolute 0.38 #; Lymphocytes # 1.7 10*3/uL (1.4-4.0); Lymphocytes % 15.6 % (21.2-54.2); Mean Corpuscular HGB Conc 33.1 GM/DL (32-36); Mean Platelet Volume 9.8 FL (9.6-12.0); Monocytes % 12.6 % (1.7-12.7); Neutrophils % 65.5 % (38.7-73.9); Platelet Count 269 T/CUMM (130-400); Red Blood Count 4.11 MC/CUMM (3.8-5.5); Red Cell Distribution Width 15.9 % (9.3-17.3); White Blood Count 10.6 T/CUMM (4-12)
[2021-11-13 06:14] LABS: INR 1.2; PT Patient Result 13.1 SECS (10.5-12.0)
[2021-11-13 06:37] LABS: Albumin 1.8 G/DL (3.4-5.0); Bilirubin,Total 2.2 MG/DL (0.20-1.00); Calcium 8.2 MG/DL (8.5-10.1); Osmolality,Calculated 275.8 MOS/KG (273-304); Potassium 3.6 MMOL/L (3.5-5.1); Total Protein 5.9 G/DL (6.4-8.2)
[2021-11-13] MEDS ORDERED: TUBERCULIN SKIN TEST 0.1 ML SYRINGE INTRADERM ONE (07:51)
[2021-11-13] MEDS ORDERED: WARFARIN 3 MG TABLET PO ONE (08:30)
[2021-11-13] MEDS: LACTULOSE 20 GM/30 ML UDCUP PO SCH ×2 (09:19→20:07)
[2021-11-13] MEDS: ASPIRIN EC 81 MG TABLET PO SCH (09:20)
[2021-11-13] MEDS: AMIODARONE 200 MG TABLET PO SCH ×2 (09:20→20:08)
[2021-11-13] MEDS: DOCUSATE SODIUM 100 MG CAPSULE PO SCH ×2 (09:20→20:07)
[2021-11-13] MEDS: METOPROLOL TARTRATE 50 MG TABLET PO SCH (09:20)
[2021-11-13] MEDS: TRIAMCINOLONE 0.1% CREAM 15 GM TUBE TOP SCH ×2 (09:20→20:08)
[2021-11-13] MEDS: amLODIPine 10 MG TABLET PO SCH (09:20)
[2021-11-13] MEDS: WARFARIN 5 MG TABLET PO SCH ×2 (16:53→17:18)
[2021-11-13] MEDS: ATORVASTATIN 10 MG TABLET PO SCH (20:07)
[2021-11-13] MEDS: PRAMIPEXOLE 0.25 MG TABLET PO SCH (20:07)
[2021-11-14 05:11] LABS: Basophils # 0.1 10*3/uL (0.0-0.2); Basophils % 0.6 % (0.0-0.8); Eosinophils # 0.3 10*3/uL (0.0-0.87); Eosinophils % 2.1 % (0.00-10.9); Hematocrit 38.3 VOL% (42.0-52.0); Hemoglobin 12.6 GM/DL (14.0-18.0); Immature Granulocytes % 4.3 %; Immature Granulocytes Absolute 0.57 #; Lymphocytes # 1.6 10*3/uL (1.4-4.0); Lymphocytes % 11.9 % (21.2-54.2); Mean Corpuscular HGB Conc 32.9 GM/DL (32-36); Mean Corpuscular Volume 92.5 FL (87-102); Mean Platelet Volume 10.2 FL (9.6-12.0); Monocytes % 11.5 % (1.7-12.7); Neutrophils % 69.6 % (38.7-73.9); Platelet Count 273 T/CUMM (130-400); Red Blood Count 4.14 MC/CUMM (3.8-5.5); White Blood Count 13.4 T/CUMM (4-12)
[2021-11-14 05:28] LABS: INR 1.3; PT Patient Result 14.6 SECS (10.5-12.0)
[2021-11-14] MEDS: LEVOTHYROXINE 100 MCG TABLET PO SCH (05:32)
[2021-11-14 05:38] LABS: Band Neutrophils 1 % (0-10); Lymphocytes 10 % (20-55); Platelet Estimate Normal; Segmented Neutrophils 77 % (50-85); Total Cells Counted 100
[2021-11-14 05:52] LABS: Albumin 1.8 G/DL (3.4-5.0); Bilirubin,Total 2.3 MG/DL (0.20-1.00); Osmolality,Calculated 274.8 MOS/KG (273-304); Potassium 3.9 MMOL/L (3.5-5.1)
[2021-11-14] MEDS: DOCUSATE SODIUM 100 MG CAPSULE PO SCH ×2 (09:14→20:54)
[2021-11-14] MEDS: AMIODARONE 200 MG TABLET PO SCH ×2 (09:14→20:55)
[2021-11-14] MEDS: amLODIPine 10 MG TABLET PO SCH (09:14)
[2021-11-14] MEDS: METOPROLOL TARTRATE 50 MG TABLET PO SCH (09:15)
[2021-11-14] MEDS: ASPIRIN EC 81 MG TABLET PO SCH (09:15)
[2021-11-14] MEDS: TRIAMCINOLONE 0.1% CREAM 15 GM TUBE TOP SCH ×2 (09:15→20:55)
[2021-11-14] MEDS: LACTULOSE 20 GM/30 ML UDCUP PO SCH ×2 (09:15→20:54)
[2021-11-14] MEDS: WARFARIN 5 MG TABLET PO SCH (18:31)
[2021-11-14] MEDS: PRAMIPEXOLE 0.25 MG TABLET PO SCH (20:54)
[2021-11-14] MEDS: ATORVASTATIN 10 MG TABLET PO SCH (20:54)
[2021-11-15 06:17] LABS: Basophils # 0.1 10*3/uL (0.0-0.2); Basophils % 0.4 % (0.0-0.8); Eosinophils # 0.2 10*3/uL (0.0-0.87); Eosinophils % 1.6 % (0.00-10.9); Hematocrit 37.5 VOL% (42.0-52.0); Hemoglobin 12.3 GM/DL (14.0-18.0); Immature Granulocytes Absolute 0.41 #; Lymphocytes # 1.4 10*3/uL (1.4-4.0); Lymphocytes % 10.7 % (21.2-54.2); Mean Corpuscular HGB Conc 32.8 GM/DL (32-36); Mean Corpuscular Volume 92.1 FL (87-102); Mean Platelet Volume 9.6 FL (9.6-12.0); Monocytes % 10.5 % (1.7-12.7); Neutrophils % 73.8 % (38.7-73.9); Platelet Count 236 T/CUMM (130-400); Red Blood Count 4.07 MC/CUMM (3.8-5.5); Red Cell Distribution Width 16.1 % (9.3-17.3); White Blood Count 13.5 T/CUMM (4-12)
[2021-11-15] MEDS: LEVOTHYROXINE 100 MCG TABLET PO SCH (06:41)
[2021-11-15 06:42] LABS: Albumin 1.9 G/DL (3.4-5.0); Calcium 8.3 MG/DL (8.5-10.1); Osmolality,Calculated 273.1 MOS/KG (273-304); Potassium 3.7 MMOL/L (3.5-5.1); Total Protein 6.1 G/DL (6.4-8.2)
[2021-11-15] MEDS: amLODIPine 10 MG TABLET PO SCH (10:06)
[2021-11-15] MEDS: ASPIRIN EC 81 MG TABLET PO SCH (10:06)
[2021-11-15] MEDS: LACTULOSE 20 GM/30 ML UDCUP PO SCH ×2 (10:06→20:31)
[2021-11-15] MEDS: METOPROLOL TARTRATE 50 MG TABLET PO SCH (10:06)
[2021-11-15] MEDS: DOCUSATE SODIUM 100 MG CAPSULE PO SCH ×2 (10:06→20:31)
[2021-11-15] MEDS: AMIODARONE 200 MG TABLET PO SCH ×2 (10:06→20:31)
[2021-11-15] MEDS: TRIAMCINOLONE 0.1% CREAM 15 GM TUBE TOP SCH ×2 (10:07→20:31)
[2021-11-15] MEDS: WARFARIN 5 MG TABLET PO SCH (18:00)
[2021-11-15] MEDS: PRAMIPEXOLE 0.25 MG TABLET PO SCH (20:31)
[2021-11-15] MEDS: ATORVASTATIN 10 MG TABLET PO SCH (20:31)
[2021-11-16 05:25] LABS: Basophils # 0.1 10*3/uL (0.0-0.2); Basophils % 0.6 % (0.0-0.8); Eosinophils # 0.3 10*3/uL (0.0-0.87); Eosinophils % 1.8 % (0.00-10.9); Hematocrit 37.3 VOL% (42.0-52.0); Hemoglobin 12.4 GM/DL (14.0-18.0); Immature Granulocytes % 4.2 %; Immature Granulocytes Absolute 0.59 #; Lymphocytes % 13.7 % (21.2-54.2); Mean Corpuscular HGB Conc 33.2 GM/DL (32-36); Mean Corpuscular Volume 92.1 FL (87-102); Mean Platelet Volume 9.9 FL (9.6-12.0); Monocytes % 11.3 % (1.7-12.7); Neutrophils % 68.4 % (38.7-73.9); Platelet Count 247 T/CUMM (130-400); Red Blood Count 4.05 MC/CUMM (3.8-5.5); Red Cell Distribution Width 16.1 % (9.3-17.3); White Blood Count 14.2 T/CUMM (4-12)
[2021-11-16 05:32] LABS: INR 1.7; PT Patient Result 18.5 SECS (10.5-12.0)
[2021-11-16 05:42] LABS: Albumin 1.9 G/DL (3.4-5.0); Bilirubin,Total 1.4 MG/DL (0.20-1.00); Calcium 8.3 MG/DL (8.5-10.1); Potassium 3.8 MMOL/L (3.5-5.1); Total Protein 5.9 G/DL (6.4-8.2)
[2021-11-16 06:16] LABS: Anisocytosis 1+; Band Neutrophils 5 % (0-10); Eosinophils 1 % (0-10); Lymphocytes 11 % (20-55); Macrocytosis Slight; Platelet Estimate Normal; Segmented Neutrophils 65 % (50-85); Tear Drop Cells Few; Total Cells Counted 100
[2021-11-16 06:17] LABS: Ovalocytes Few
[2021-11-16] MEDS: LEVOTHYROXINE 100 MCG TABLET PO SCH (06:26)
[2021-11-16] MEDS: METOPROLOL TARTRATE 50 MG TABLET PO SCH (08:19)
[2021-11-16] MEDS: amLODIPine 10 MG TABLET PO SCH (08:19)
[2021-11-16] MEDS: DOCUSATE SODIUM 100 MG CAPSULE PO SCH ×2 (08:19→20:06)
[2021-11-16] MEDS: AMIODARONE 200 MG TABLET PO SCH ×2 (08:20→20:06)
[2021-11-16] MEDS: ASPIRIN EC 81 MG TABLET PO SCH (08:20)
[2021-11-16] MEDS: TRIAMCINOLONE 0.1% CREAM 15 GM TUBE TOP SCH ×2 (08:20→20:07)
[2021-11-16] MEDS: LACTULOSE 20 GM/30 ML UDCUP PO SCH ×2 (08:20→20:06)
[2021-11-16] MEDS: guaiFENesin 200 MG/10 ML UDCUP PO PRN ×2 (08:22→22:10)
[2021-11-16] MEDS: WARFARIN 5 MG TABLET PO SCH (17:16)
[2021-11-16] MEDS ORDERED: PHENYLEPH/MINERAL OIL/PETROLAT 57 GM TUBE TOP PRN (17:23)
[2021-11-16] MEDS: ATORVASTATIN 10 MG TABLET PO SCH (20:06)
[2021-11-16] MEDS: PRAMIPEXOLE 0.25 MG TABLET PO SCH (20:06)
[2021-11-17] MEDS: LEVOTHYROXINE 100 MCG TABLET PO SCH (06:15)
[2021-11-17 06:38] LABS: Basophils # 0.1 10*3/uL (0.0-0.2); Basophils % 0.7 % (0.0-0.8); Eosinophils # 0.2 10*3/uL (0.0-0.87); Eosinophils % 1.5 % (0.00-10.9); Hematocrit 37.1 VOL% (42.0-52.0); Hemoglobin 11.9 GM/DL (14.0-18.0); Immature Granulocytes % 3.8 %; Immature Granulocytes Absolute 0.48 #; Lymphocytes # 1.6 10*3/uL (1.4-4.0); Lymphocytes % 12.9 % (21.2-54.2); Mean Corpuscular HGB Conc 32.1 GM/DL (32-36); Mean Corpuscular Volume 92.8 FL (87-102); Mean Platelet Volume 9.5 FL (9.6-12.0); Monocytes % 9.8 % (1.7-12.7); Neutrophils % 71.3 % (38.7-73.9); Platelet Count 233 T/CUMM (130-400); Red Cell Distribution Width 16.4 % (9.3-17.3); White Blood Count 12.7 T/CUMM (4-12)
[2021-11-17 06:58] LABS: Albumin 1.7 G/DL (3.4-5.0); Bilirubin,Total 1.6 MG/DL (0.20-1.00); Osmolality,Calculated 279.4 MOS/KG (273-304); Total Protein 5.7 G/DL (6.4-8.2)
[2021-11-17] MEDS: ASPIRIN EC 81 MG TABLET PO SCH (08:06)
[2021-11-17] MEDS: DOCUSATE SODIUM 100 MG CAPSULE PO SCH (08:06)
[2021-11-17] MEDS: LACTULOSE 20 GM/30 ML UDCUP PO SCH (08:06)
[2021-11-17] MEDS: AMIODARONE 200 MG TABLET PO SCH (08:06)
[2021-11-17] MEDS: guaiFENesin 200 MG/10 ML UDCUP PO PRN (08:06)
[2021-11-17] MEDS: amLODIPine 10 MG TABLET PO SCH (08:06)
[2021-11-17] MEDS: TRIAMCINOLONE 0.1% CREAM 15 GM TUBE TOP SCH (08:07)
[2021-11-17] MEDS: METOPROLOL TARTRATE 50 MG TABLET PO SCH (08:07)
[2021-11-17 08:25] VITALS: BP 181/84
== END 2021-11-17 10:27 | disposition home or self-care (01) | DRG 657 ==
LOC: N.OR 08:01 → N.SDSINP 08:02 → N.2E 14:21 → EDSTATUS 15:00 → N.2E 11-10 14:58
PROVIDERS: ADMIT Surgery; ATTEND Surgery

== ENCOUNTER 2021-12-30 11:34 | Inpatient (IN) ==
[2021-12-30] MEDS ORDERED: SODIUM CHLORIDE 0.9% 500 ML IV STA (11:47)
[2021-12-30] MEDS ORDERED: OXYMETAZOLINE 0.05% NASAL SPRAY 15 ML BOTTLE BOTH NARES STA (11:52)
[2021-12-30 12:39] LABS: Basophils # 0.1 10*3/uL (0.0-0.2); Basophils % 0.4 % (0.0-0.8); Eosinophils % 0.1 % (0.00-10.9); Hematocrit 31.5 VOL% (42.0-52.0); Hemoglobin 10.3 GM/DL (14.0-18.0); Immature Granulocytes Absolute 0.22 #; Lymphocytes # 1.7 10*3/uL (1.4-4.0); Lymphocytes % 7.6 % (21.2-54.2); Mean Corpuscular HGB Conc 32.7 GM/DL (32-36); Mean Corpuscular Volume 93.5 FL (87-102); Mean Platelet Volume 10.3 FL (9.6-12.0); Monocytes % 7.6 % (1.7-12.7); Neutrophils % 83.3 % (38.7-73.9); Platelet Count 356 T/CUMM (130-400); Red Blood Count 3.37 MC/CUMM (3.8-5.5); Red Cell Distribution Width 17.3 % (9.3-17.3); White Blood Count 21.7 T/CUMM (4-12)
[2021-12-30 13:03] LABS: PT Patient Result 88.6 SECS (10.5-12.0)
[2021-12-30 13:04] LABS: INR 9.3
[2021-12-30] MEDS ORDERED: PHYTONADIONE 5 MG/5 ML ORAL.SYR PO STA (13:26)
[2021-12-30] MEDS ORDERED: cefTRIAXone 1,000 MG in SODIUM CHLORIDE 0.9% 100 ML IV STA (13:37)
[2021-12-30] MEDS ORDERED: ONDANSETRON 4 MG/2 ML VIAL IV PRN (13:59)
[2021-12-30] MEDS ORDERED: ACETAMINOPHEN 325 MG TABLET PO PRN (13:59)
[2021-12-30 14:34] LABS: Albumin 1.8 G/DL (3.4-5.0); Bilirubin,Total 1.5 MG/DL (0.20-1.00); Calcium 8.3 MG/DL (8.5-10.1); Osmolality,Calculated 288.3 MOS/KG (273-304); Potassium 4.2 MMOL/L (3.5-5.1); Total Protein 6.5 G/DL (6.4-8.2)
[2021-12-30 15:02] LABS: Lymphocytes 8 % (20-55); Segmented Neutrophils 90 % (50-85); Total Cells Counted 100
[2021-12-30 15:03] LABS: Target Cells Few
[2021-12-30 15:04] LABS: Elliptocytes Few; Platelet Estimate Normal
[2021-12-30 15:06] LABS: Ovalocytes Few; Tear Drop Cells Few
[2021-12-30] MEDS ORDERED: ZALEPLON 5 MG CAPSULE PO PRN (18:15)
[2021-12-30 18:45] LABS: Hematocrit 29.6 VOL% (42.0-52.0); Hemoglobin 9.5 GM/DL (14.0-18.0)
[2021-12-30] MEDS ORDERED: AZITHROMYCIN 250 MG TABLET PO ONE (19:11)
[2021-12-30] MEDS: cefTRIAXone 1,000 MG in SODIUM CHLORIDE 0.9% 100 ML IV SCH (20:37)
[2021-12-30] MEDS: PRAMIPEXOLE 0.25 MG TABLET PO SCH (20:37)
[2021-12-30] MEDS: DOCUSATE SODIUM 100 MG CAPSULE PO SCH (20:38)
[2021-12-30] MEDS: AMIODARONE 200 MG TABLET PO SCH (20:38)
[2021-12-30] MEDS: ATORVASTATIN 10 MG TABLET PO SCH (20:38)
[2021-12-30] MEDS: SODIUM CHLORIDE 0.45% 1,000 ML IV SCH (20:43)
[2021-12-31 01:05] LABS: Hemoglobin 8.2 GM/DL (14.0-18.0)
[2021-12-31 03:24] LABS: Bacteria,Urine Occasional /HPF (Few); Bilirubin,Urine Negative (Negative); Blood, Urine Negative (Negative); Glucose,Urine (UA) Negative (Negative); Ketones,Urine Negative (Negative); Mucus,Urine Occasional /LPF (Occasional); Nitrite,Urine Negative (Negative); Protein,Urine Negative; RBC,Urine 1 /HPF (0-4); Squamous Epithelial Cell,Urine Occasional /HPF (0-10); Urine Appearance CLEAR (Clear); Urine Color Yellow (Yellow); Urine Specific Gravity 1.021 (1.001-1.035); Urine Urobilinogen < 2.0 EU/DL (<2.0)
[2021-12-31 05:33] LABS: Basophils # 0.1 10*3/uL (0.0-0.2); Basophils % 0.3 % (0.0-0.8); Eosinophils # 0.1 10*3/uL (0.0-0.87); Eosinophils % 0.3 % (0.00-10.9); Hematocrit 24.4 VOL% (42.0-52.0); Immature Granulocytes % 1.1 %; Lymphocytes # 1.9 10*3/uL (1.4-4.0); Lymphocytes % 11.1 % (21.2-54.2); Mean Corpuscular HGB Conc 32.8 GM/DL (32-36); Mean Corpuscular Volume 93.5 FL (87-102); Mean Platelet Volume 10.2 FL (9.6-12.0); Monocytes % 9.7 % (1.7-12.7); Neutrophils % 77.5 % (38.7-73.9); Platelet Count 223 T/CUMM (130-400); Red Blood Count 2.61 MC/CUMM (3.8-5.5); Red Cell Distribution Width 17.5 % (9.3-17.3); White Blood Count 17.4 T/CUMM (4-12)
[2021-12-31 05:42] LABS: INR 3.3; PT Patient Result 33.5 SECS (10.5-12.0)
[2021-12-31 05:52] LABS: Calcium 8.3 MG/DL (8.5-10.1); Osmolality,Calculated 290.3 MOS/KG (273-304); Potassium 4.4 MMOL/L (3.5-5.1)
[2021-12-31 05:57] LABS: Thyroid Stimulating Hormone 13.2 uIU/ml (0.358-3.74)
[2021-12-31] MEDS ORDERED: LEVOTHYROXINE 100 MCG TABLET PO SCH (06:30)
[2021-12-31] MEDS: SODIUM CHLORIDE 0.45% 1,000 ML IV SCH (07:51)
[2021-12-31 08:00] LABS: Hematocrit 24.5 VOL% (42.0-52.0); Hemoglobin 8.1 GM/DL (14.0-18.0)
[2021-12-31] MEDS: DOCUSATE SODIUM 100 MG CAPSULE PO SCH ×2 (09:28→21:16)
[2021-12-31] MEDS: AZITHROMYCIN 250 MG TABLET PO SCH (09:29)
[2021-12-31] MEDS: cefTRIAXone 1,000 MG in SODIUM CHLORIDE 0.9% 100 ML IV SCH (09:29)
[2021-12-31] MEDS: AMIODARONE 200 MG TABLET PO SCH ×2 (09:29→21:14)
[2021-12-31] MEDS: PANTOPRAZOLE 40 MG TABLET PO SCH (09:29)
[2021-12-31 13:14] LABS: Hematocrit 23.6 VOL% (42.0-52.0); Hemoglobin 7.6 GM/DL (14.0-18.0)
[2021-12-31] MEDS ORDERED: SODIUM CHLORIDE 0.9% 1,000 ML IV PRN (14:30)
[2021-12-31] MEDS: PRAMIPEXOLE 0.25 MG TABLET PO SCH (21:13)
[2021-12-31] MEDS: ATORVASTATIN 10 MG TABLET PO SCH (21:14)
[2022-01-01] MEDS: SODIUM CHLORIDE 0.45% 1,000 ML IV SCH (01:22)
[2022-01-01 03:15] LABS: Basophils # 0.1 10*3/uL (0.0-0.2); Basophils % 0.4 % (0.0-0.8); Eosinophils # 0.2 10*3/uL (0.0-0.87); Eosinophils % 1.4 % (0.00-10.9); Hematocrit 26.7 VOL% (42.0-52.0); Hemoglobin 8.8 GM/DL (14.0-18.0); Immature Granulocytes % 1.3 %; Immature Granulocytes Absolute 0.18 #; Lymphocytes % 14.2 % (21.2-54.2); Mean Corpuscular Volume 93.4 FL (87-102); Monocytes % 10.4 % (1.7-12.7); Neutrophils % 72.3 % (38.7-73.9); Platelet Count 175 T/CUMM (130-400); Red Blood Count 2.86 MC/CUMM (3.8-5.5); Red Cell Distribution Width 16.3 % (9.3-17.3); White Blood Count 13.9 T/CUMM (4-12)
[2022-01-01 03:34] LABS: Albumin 1.5 G/DL (3.4-5.0); Bilirubin,Total 1.7 MG/DL (0.20-1.00); Calcium 7.9 MG/DL (8.5-10.1); Osmolality,Calculated 285.3 MOS/KG (273-304); Potassium 4.2 MMOL/L (3.5-5.1); Total Protein 5.4 G/DL (6.4-8.2)
[2022-01-01 04:05] LABS: PT Patient Result > 178.9 SECS (10.5-12.0)
[2022-01-01 04:06] LABS: INR > 17.6
[2022-01-01] MEDS: LEVOTHYROXINE 112 MCG TABLET PO SCH (05:52)
[2022-01-01] MEDS ORDERED: SODIUM CHLORIDE 0.9% 1,000 ML IV PRN (08:37)
[2022-01-01] MEDS: AZITHROMYCIN 250 MG TABLET PO SCH (08:43)
[2022-01-01] MEDS: cefTRIAXone 1,000 MG in SODIUM CHLORIDE 0.9% 100 ML IV SCH (08:43)
[2022-01-01] MEDS: DOCUSATE SODIUM 100 MG CAPSULE PO SCH ×2 (08:44→20:45)
[2022-01-01] MEDS: AMIODARONE 200 MG TABLET PO SCH ×2 (08:44→20:44)
[2022-01-01] MEDS: PANTOPRAZOLE 40 MG TABLET PO SCH (08:44)
[2022-01-01] MEDS ORDERED: PHYTONADIONE INJ 5 MG in SODIUM CHLORIDE 0.9% 50 ML IV ONE (09:00)
[2022-01-01 09:06] LABS: Hematocrit 29.2 VOL% (42.0-52.0); Hemoglobin 9.5 GM/DL (14.0-18.0)
[2022-01-01 09:27] LABS: PT Patient Result 158.4 SECS (10.5-12.0)
[2022-01-01 09:29] LABS: INR 17.5
[2022-01-01] MEDS ORDERED: BUMETANIDE 1 MG/4 ML VIAL IV ONE (12:00)
[2022-01-01 15:02] LABS: Hemoglobin 9.3 GM/DL (14.0-18.0)
[2022-01-01] MEDS: PRAMIPEXOLE 0.25 MG TABLET PO SCH (20:45)
[2022-01-01] MEDS: ATORVASTATIN 10 MG TABLET PO SCH (20:45)
[2022-01-02] MEDS: SODIUM CHLORIDE 0.45% 1,000 ML IV SCH ×2 (01:23→12:00)
[2022-01-02 05:20] LABS: Basophils # 0.1 10*3/uL (0.0-0.2); Basophils % 0.5 % (0.0-0.8); Eosinophils # 0.3 10*3/uL (0.0-0.87); Eosinophils % 2.6 % (0.00-10.9); Hematocrit 28.6 VOL% (42.0-52.0); Hemoglobin 9.1 GM/DL (14.0-18.0); Immature Granulocytes % 1.8 %; Immature Granulocytes Absolute 0.23 #; Lymphocytes # 1.7 10*3/uL (1.4-4.0); Lymphocytes % 13.1 % (21.2-54.2); Mean Corpuscular HGB Conc 31.8 GM/DL (32-36); Mean Platelet Volume 10.4 FL (9.6-12.0); Monocytes % 11.5 % (1.7-12.7); Neutrophils % 70.5 % (38.7-73.9); Platelet Count 162 T/CUMM (130-400); Red Blood Count 2.98 MC/CUMM (3.8-5.5); Red Cell Distribution Width 16.6 % (9.3-17.3); White Blood Count 12.8 T/CUMM (4-12)
[2022-01-02 05:41] LABS: Calcium 8.1 MG/DL (8.5-10.1); Osmolality,Calculated 283.3 MOS/KG (273-304); Potassium 3.8 MMOL/L (3.5-5.1)
[2022-01-02] MEDS: LEVOTHYROXINE 112 MCG TABLET PO SCH (05:47)
[2022-01-02 05:56] LABS: Albumin 1.8 G/DL (3.4-5.0); Bilirubin,Total 2.8 MG/DL (0.20-1.00); Osmolality,Calculated 283.3 MOS/KG (273-304); Potassium 4.1 MMOL/L (3.5-5.1); Total Protein 5.8 G/DL (6.4-8.2)
[2022-01-02 05:57] LABS: INR 1.3
[2022-01-02 06:06] LABS: PT Patient Result 14.1 SECS (10.5-12.0)
[2022-01-02 06:39] LABS: Platelet Estimate Normal
[2022-01-02 06:40] LABS: Anisocytosis 2+; Burr Cells Few; Macrocytosis Slight; Ovalocytes Few; Tear Drop Cells Few
[2022-01-02] MEDS ORDERED: BUMETANIDE 1 MG/4 ML VIAL IV ONE (07:50)
[2022-01-02] MEDS: PANTOPRAZOLE 40 MG TABLET PO SCH (10:15)
[2022-01-02] MEDS: DOCUSATE SODIUM 100 MG CAPSULE PO SCH ×2 (10:15→21:52)
[2022-01-02] MEDS: AMIODARONE 200 MG TABLET PO SCH ×2 (10:15→21:52)
[2022-01-02] MEDS: LACTULOSE 20 GM/30 ML UDCUP PO SCH ×2 (10:15→21:52)
[2022-01-02] MEDS: cefTRIAXone 1,000 MG in SODIUM CHLORIDE 0.9% 100 ML IV SCH (10:20)
[2022-01-02] MEDS: WARFARIN 2.5 MG TABLET PO SCH (12:03)
[2022-01-02] MEDS: PRAMIPEXOLE 0.25 MG TABLET PO SCH (21:52)
[2022-01-03 06:05] LABS: Basophils % 0.4 % (0.0-0.8); Eosinophils # 0.3 10*3/uL (0.0-0.87); Eosinophils % 2.5 % (0.00-10.9); Hematocrit 27.2 VOL% (42.0-52.0); Hemoglobin 8.8 GM/DL (14.0-18.0); Immature Granulocytes % 2.3 %; Immature Granulocytes Absolute 0.25 #; Lymphocytes # 1.3 10*3/uL (1.4-4.0); Lymphocytes % 12.4 % (21.2-54.2); Mean Corpuscular HGB Conc 32.4 GM/DL (32-36); Mean Corpuscular Volume 97.1 FL (87-102); Mean Platelet Volume 11.4 FL (9.6-12.0); Monocytes % 12.1 % (1.7-12.7); NRBC # 0.02 10*3/uL; Neutrophils % 70.3 % (38.7-73.9); Platelet Count 105 T/CUMM (130-400); Red Cell Distribution Width 16.9 % (9.3-17.3); White Blood Count 10.7 T/CUMM (4-12)
[2022-01-03] MEDS: LEVOTHYROXINE 112 MCG TABLET PO SCH (06:06)
[2022-01-03 06:09] LABS: INR 1.4; PT Patient Result 15.1 SECS (10.5-12.0)
[2022-01-03 06:31] LABS: Albumin 1.6 G/DL (3.4-5.0); Bilirubin,Total 2.5 MG/DL (0.20-1.00); Calcium 7.8 MG/DL (8.5-10.1); Osmolality,Calculated 275.7 MOS/KG (273-304); Potassium 4.4 MMOL/L (3.5-5.1); Total Protein 5.7 G/DL (6.4-8.2)
[2022-01-03] MEDS: AMIODARONE 200 MG TABLET PO SCH ×2 (09:22→20:48)
[2022-01-03] MEDS: PANTOPRAZOLE 40 MG TABLET PO SCH (09:22)
[2022-01-03] MEDS: WARFARIN 2.5 MG TABLET PO SCH (09:22)
[2022-01-03] MEDS: LACTULOSE 20 GM/30 ML UDCUP PO SCH ×2 (09:22→20:48)
[2022-01-03] MEDS: DOCUSATE SODIUM 100 MG CAPSULE PO SCH ×2 (09:22→20:48)
[2022-01-03] MEDS: cefTRIAXone 1,000 MG in SODIUM CHLORIDE 0.9% 100 ML IV SCH (09:27)
[2022-01-03] MEDS: PRAMIPEXOLE 0.25 MG TABLET PO SCH (20:48)
[2022-01-04] MEDS: LEVOTHYROXINE 112 MCG TABLET PO SCH (05:33)
[2022-01-04 06:51] LABS: Basophils # 0.1 10*3/uL (0.0-0.2); Basophils % 0.5 % (0.0-0.8); Eosinophils # 0.3 10*3/uL (0.0-0.87); Eosinophils % 2.3 % (0.00-10.9); Hematocrit 27.6 VOL% (42.0-52.0); Hemoglobin 9.1 GM/DL (14.0-18.0); Immature Granulocytes Absolute 0.25 #; Lymphocytes # 1.3 10*3/uL (1.4-4.0); Lymphocytes % 10.5 % (21.2-54.2); Mean Corpuscular Volume 94.5 FL (87-102); Mean Platelet Volume 10.8 FL (9.6-12.0); Monocytes % 12.3 % (1.7-12.7); Neutrophils % 72.4 % (38.7-73.9); Platelet Count 172 T/CUMM (130-400); Red Blood Count 2.92 MC/CUMM (3.8-5.5); Red Cell Distribution Width 16.9 % (9.3-17.3); White Blood Count 12.5 T/CUMM (4-12)
[2022-01-04 06:58] LABS: INR 1.4; PT Patient Result 15.5 SECS (10.5-12.0)
[2022-01-04] MEDS: WARFARIN 2.5 MG TABLET PO SCH (09:28)
[2022-01-04] MEDS: cefTRIAXone 1,000 MG in SODIUM CHLORIDE 0.9% 100 ML IV SCH (09:28)
[2022-01-04] MEDS: DOCUSATE SODIUM 100 MG CAPSULE PO SCH ×2 (09:28→20:38)
[2022-01-04] MEDS: PANTOPRAZOLE 40 MG TABLET PO SCH (09:28)
[2022-01-04] MEDS: LACTULOSE 20 GM/30 ML UDCUP PO SCH ×2 (09:28→20:38)
[2022-01-04] MEDS: AMIODARONE 200 MG TABLET PO SCH ×2 (09:28→20:39)
[2022-01-04] MEDS: PRAMIPEXOLE 0.25 MG TABLET PO SCH (20:39)
[2022-01-05 05:27] LABS: INR 1.5; PT Patient Result 16.7 SECS (10.5-12.0)
[2022-01-05 05:51] LABS: Albumin 1.7 G/DL (3.4-5.0); Bilirubin,Direct 0.37 MG/DL (0.0-0.20); Bilirubin,Indirect 0.6 MG/DL (0.0-1.0); Total Protein 5.8 G/DL (6.4-8.2)
[2022-01-05] MEDS: LEVOTHYROXINE 112 MCG TABLET PO SCH (06:51)
[2022-01-05] MEDS: PANTOPRAZOLE 40 MG TABLET PO SCH (08:31)
[2022-01-05] MEDS: AMIODARONE 200 MG TABLET PO SCH ×2 (08:32→21:50)
[2022-01-05] MEDS: DOCUSATE SODIUM 100 MG CAPSULE PO SCH ×2 (08:35→21:50)
[2022-01-05] MEDS: cefTRIAXone 1,000 MG in SODIUM CHLORIDE 0.9% 100 ML IV SCH (08:36)
[2022-01-05] MEDS: LACTULOSE 20 GM/30 ML UDCUP PO SCH ×2 (08:36→21:50)
[2022-01-05] MEDS ORDERED: TISSUE ADHESIVE 1 EACH APPLICATOR TOP ONE (16:16)
[2022-01-05 17:14] LABS: Neutrophils,Peritoneal Fluid 4 %; RBC,Peritoneal Fluid 77 T/CUMM
[2022-01-05] MEDS: PRAMIPEXOLE 0.25 MG TABLET PO SCH (21:50)
[2022-01-06 05:12] LABS: Basophils # 0.1 10*3/uL (0.0-0.2); Basophils % 0.6 % (0.0-0.8); Eosinophils # 0.3 10*3/uL (0.0-0.87); Eosinophils % 2.4 % (0.00-10.9); Hematocrit 27.3 VOL% (42.0-52.0); Hemoglobin 8.7 GM/DL (14.0-18.0); Immature Granulocytes % 1.3 %; Immature Granulocytes Absolute 0.14 #; Lymphocytes # 1.5 10*3/uL (1.4-4.0); Lymphocytes % 13.6 % (21.2-54.2); Mean Corpuscular HGB Conc 31.9 GM/DL (32-36); Mean Corpuscular Volume 95.5 FL (87-102); Mean Platelet Volume 10.5 FL (9.6-12.0); Monocytes % 12.8 % (1.7-12.7); Neutrophils % 69.3 % (38.7-73.9); Platelet Count 165 T/CUMM (130-400); Red Blood Count 2.86 MC/CUMM (3.8-5.5); Red Cell Distribution Width 16.9 % (9.3-17.3); White Blood Count 10.8 T/CUMM (4-12)
[2022-01-06 05:18] LABS: INR 1.5; PT Patient Result 16.6 SECS (10.5-12.0)
[2022-01-06 05:30] LABS: Calcium 7.8 MG/DL (8.5-10.1); Osmolality,Calculated 278.4 MOS/KG (273-304); Potassium 4.1 MMOL/L (3.5-5.1)
[2022-01-06 05:33] LABS: Albumin 1.6 G/DL (3.4-5.0); Bilirubin,Total 1.1 MG/DL (0.20-1.00); Osmolality,Calculated 274.7 MOS/KG (273-304); Total Protein 5.5 G/DL (6.4-8.2)
[2022-01-06 05:51] LABS: Eosinophils 4 % (0-10); Hypochromia 1+; Lymphocytes 8 % (20-55); Microcytosis 1+; Platelet Estimate Adequate; Segmented Neutrophils 77 % (50-85); Total Cells Counted 100
[2022-01-06] MEDS: LEVOTHYROXINE 112 MCG TABLET PO SCH (06:03)
[2022-01-06] MEDS ORDERED: LACTULOSE 20 GM/30 ML UDCUP PO PRN (07:50)
[2022-01-06] MEDS: AMIODARONE 200 MG TABLET PO SCH ×2 (09:31→20:30)
[2022-01-06] MEDS: DOCUSATE SODIUM 100 MG CAPSULE PO SCH ×2 (09:31→20:30)
[2022-01-06] MEDS: cefTRIAXone 1,000 MG in SODIUM CHLORIDE 0.9% 100 ML IV SCH ×2 (09:31→10:59)
[2022-01-06] MEDS: PANTOPRAZOLE 40 MG TABLET PO SCH (09:31)
[2022-01-06] MEDS: LACTULOSE 20 GM/30 ML UDCUP PO SCH ×3 (09:31→20:30)
[2022-01-06] MEDS: WARFARIN 2.5 MG TABLET PO SCH (10:59)
[2022-01-06] MEDS: SPIRONOLACTONE 25 MG TABLET PO SCH ×2 (14:15→20:29)
[2022-01-06] MEDS: PRAMIPEXOLE 0.25 MG TABLET PO SCH (20:30)
[2022-01-07] MEDS: LACTULOSE 20 GM/30 ML UDCUP PO SCH ×2 (04:10→09:20)
[2022-01-07 05:38] LABS: INR 1.5; PT Patient Result 16.5 SECS (10.5-12.0)
[2022-01-07 05:39] LABS: Basophils # 0.1 10*3/uL (0.0-0.2); Basophils % 0.7 % (0.0-0.8); Eosinophils # 0.2 10*3/uL (0.0-0.87); Eosinophils % 1.7 % (0.00-10.9); Hematocrit 26.9 VOL% (42.0-52.0); Hemoglobin 8.7 GM/DL (14.0-18.0); Immature Granulocytes % 1.1 %; Immature Granulocytes Absolute 0.12 #; Lymphocytes # 1.5 10*3/uL (1.4-4.0); Lymphocytes % 13.6 % (21.2-54.2); Mean Corpuscular HGB Conc 32.3 GM/DL (32-36); Mean Corpuscular Volume 95.4 FL (87-102); Mean Platelet Volume 10.7 FL (9.6-12.0); Monocytes % 15.6 % (1.7-12.7); Neutrophils % 67.3 % (38.7-73.9); Platelet Count 166 T/CUMM (130-400); Red Blood Count 2.82 MC/CUMM (3.8-5.5); White Blood Count 10.9 T/CUMM (4-12)
[2022-01-07] MEDS: LEVOTHYROXINE 112 MCG TABLET PO SCH (05:40)
[2022-01-07 05:57] LABS: Albumin 1.5 G/DL (3.4-5.0); Osmolality,Calculated 281.3 MOS/KG (273-304); Potassium 3.6 MMOL/L (3.5-5.1); Total Protein 5.7 G/DL (6.4-8.2)
[2022-01-07 06:02] LABS: Eosinophils 1 % (0-10); Hypochromia 1+; Lymphocytes 9 % (20-55); Microcytosis 1+; Platelet Estimate Adequate; Segmented Neutrophils 80 % (50-85); Total Cells Counted 100
[2022-01-07] MEDS: AMIODARONE 200 MG TABLET PO SCH (09:20)
[2022-01-07] MEDS: PANTOPRAZOLE 40 MG TABLET PO SCH (09:20)
[2022-01-07] MEDS: SPIRONOLACTONE 25 MG TABLET PO SCH (09:21)
[2022-01-07] MEDS: DOCUSATE SODIUM 100 MG CAPSULE PO SCH (09:21)
[2022-01-07 11:58] VITALS: BP 143/73
[2022-01-07] MEDS ORDERED: WARFARIN 2.5 MG TABLET PO SCH (18:00)
== END 2022-01-07 12:28 | disposition home health service (06) | DRG 813 ==
LOC: EDBD → EDUNIT# → N.ED 11:34 → N.EDINP 13:54 → N.5E 17:20
PROVIDERS: ADMIT Family Medicine; ATTEND Family Medicine

== ENCOUNTER 2022-03-18 15:53 | Inpatient (IN) ==
[2022-03-18] MEDS ORDERED: SODIUM CHLORIDE 0.9% 1,000 ML IV STA ×2 (16:26→18:02)
[2022-03-18 17:39] LABS: Basophils # 0.1 10*3/uL (0.0-0.2); Basophils % 0.8 % (0.0-0.8); Eosinophils # 0.1 10*3/uL (0.0-0.87); Eosinophils % 0.6 % (0.00-10.9); Hematocrit 46.4 VOL% (42.0-52.0); Hemoglobin 14.8 GM/DL (14.0-18.0); Immature Granulocytes % 0.8 %; Immature Granulocytes Absolute 0.06 #; Lymphocytes # 1.1 10*3/uL (1.4-4.0); Lymphocytes % 14.1 % (21.2-54.2); Mean Corpuscular HGB Conc 31.9 GM/DL (32-36); Mean Corpuscular Volume 89.1 FL (87-102); Mean Platelet Volume 11.1 FL (9.6-12.0); Monocytes # 1.2 10*3/uL (0.11-0.8); Monocytes % 15.9 % (1.7-12.7); Neutrophils % 67.8 % (38.7-73.9); Platelet Count 194 T/CUMM (130-400); Red Blood Count 5.21 MC/CUMM (3.8-5.5); Red Cell Distribution Width 20.2 % (9.3-17.3); White Blood Count 7.7 T/CUMM (4-12)
[2022-03-18 17:50] LABS: INR 2.2
[2022-03-18 17:54] LABS: PT Patient Result 23.5 SECS (10.5-12.0)
[2022-03-18 18:04] LABS: Albumin 2.3 G/DL (3.4-5.0); Bilirubin,Total 1.8 MG/DL (0.20-1.00); Calcium 8.1 MG/DL (8.5-10.1); Osmolality,Calculated 280.5 MOS/KG (273-304); Potassium 4.3 MMOL/L (3.5-5.1); Total Protein 6.6 G/DL (6.4-8.2)
[2022-03-18 18:23] LABS: Eosinophils 2 % (0-10); Lymphocytes 15 % (20-55); Total Cells Counted 100
[2022-03-18 18:24] LABS: Platelet Estimate Adequate
[2022-03-18 19:20] LABS: Hyaline Casts,Urine 8 /LPF (0-3); Mucus,Urine Occasional /LPF (Occasional); RBC,Urine 5 /HPF (0-4); Squamous Epithelial Cell,Urine Occasional /HPF (0-10)
[2022-03-18 19:21] LABS: Protein,Urine Negative (Negative); Urine Appearance Clear (Clear); Urine Color Yellow (Yellow); Urine pH 5.5 (4.5-8.0)
[2022-03-18 19:22] LABS: Bilirubin,Urine Small mg/dL (Negative); Blood, Urine Negative (Negative); Glucose,Urine (UA) Negative (Negative); Ketones,Urine Negative (Negative); Nitrite,Urine Negative (Negative)
[2022-03-18] MEDS ORDERED: ACETAMINOPHEN 325 MG TABLET PO PRN (19:30)
[2022-03-18] MEDS ORDERED: ONDANSETRON 4 MG/2 ML VIAL IV PRN (19:30)
[2022-03-18] MEDS: SODIUM CHLORIDE 0.9% 1,000 ML IV SCH (21:11)
[2022-03-19] MEDS: DOCUSATE SODIUM 100 MG CAPSULE PO SCH ×3 (00:12→21:16)
[2022-03-19 05:14] LABS: Basophils # 0.1 10*3/uL (0.0-0.2); Basophils % 0.7 % (0.0-0.8); Eosinophils # 0.1 10*3/uL (0.0-0.87); Hematocrit 30.4 VOL% (42.0-52.0); Hemoglobin 9.8 GM/DL (14.0-18.0); Immature Granulocytes % 0.8 %; Immature Granulocytes Absolute 0.09 #; Lymphocytes % 18.1 % (21.2-54.2); Mean Corpuscular HGB Conc 32.2 GM/DL (32-36); Mean Corpuscular Volume 88.9 FL (87-102); Mean Platelet Volume 11.8 FL (9.6-12.0); Monocytes # 1.5 10*3/uL (0.11-0.8); Monocytes % 13.7 % (1.7-12.7); Neutrophils % 65.7 % (38.7-73.9); Platelet Count 176 T/CUMM (130-400); Red Blood Count 3.42 MC/CUMM (3.8-5.5); Red Cell Distribution Width 19.4 % (9.3-17.3); White Blood Count 10.8 T/CUMM (4-12)
[2022-03-19 05:25] LABS: Albumin 1.8 G/DL (3.4-5.0); Bilirubin,Total 1.4 MG/DL (0.20-1.00); Calcium 8.3 MG/DL (8.5-10.1); Osmolality,Calculated 284.4 MOS/KG (273-304); Potassium 4.2 MMOL/L (3.5-5.1); Total Protein 5.8 G/DL (6.4-8.2)
[2022-03-19 05:52] LABS: Platelet Estimate Adequate
[2022-03-19] MEDS ORDERED: ZALEPLON 5 MG CAPSULE PO PRN (07:37)
[2022-03-19] MEDS: CARBIDOPA/LEVODOPA 25-100 MG TABLET PO SCH (09:46)
[2022-03-19] MEDS: SODIUM CHLORIDE 0.9% 1,000 ML IV SCH ×4 (09:46→23:03)
[2022-03-19] MEDS: LEVOTHYROXINE 75 MCG TABLET PO SCH (09:47)
[2022-03-19] MEDS: MIDODRINE 5 MG TABLET PO SCH ×3 (09:49→21:16)
[2022-03-19] MEDS: PANTOPRAZOLE 40 MG TABLET PO SCH (09:49)
[2022-03-19] MEDS: ASPIRIN EC 81 MG TABLET PO SCH (09:49)
[2022-03-19] MEDS: WARFARIN 2.5 MG TABLET PO SCH (17:04)
[2022-03-19] MEDS: ATORVASTATIN 10 MG TABLET PO SCH (21:16)
[2022-03-20] MEDS: SODIUM CHLORIDE 0.9% 1,000 ML IV SCH ×3 (03:35→17:53)
[2022-03-20 05:24] LABS: Basophils # 0.1 10*3/uL (0.0-0.2); Basophils % 0.6 % (0.0-0.8); Eosinophils # 0.2 10*3/uL (0.0-0.87); Eosinophils % 1.3 % (0.00-10.9); Hematocrit 29.9 VOL% (42.0-52.0); Hemoglobin 9.5 GM/DL (14.0-18.0); Immature Granulocytes Absolute 0.12 #; Lymphocytes # 1.4 10*3/uL (1.4-4.0); Lymphocytes % 12.1 % (21.2-54.2); Mean Corpuscular HGB Conc 31.8 GM/DL (32-36); Mean Corpuscular Volume 88.7 FL (87-102); Mean Platelet Volume 11.4 FL (9.6-12.0); Monocytes # 1.7 10*3/uL (0.11-0.8); Monocytes % 14.7 % (1.7-12.7); Neutrophils % 70.3 % (38.7-73.9); Platelet Count 176 T/CUMM (130-400); Red Blood Count 3.37 MC/CUMM (3.8-5.5); Red Cell Distribution Width 19.6 % (9.3-17.3); White Blood Count 11.7 T/CUMM (4-12)
[2022-03-20 05:27] LABS: INR 2.6
[2022-03-20 05:48] LABS: Albumin 1.8 G/DL (3.4-5.0); Bilirubin,Total 1.4 MG/DL (0.20-1.00); Osmolality,Calculated 285.1 MOS/KG (273-304); Potassium 4.5 MMOL/L (3.5-5.1); Thyroid Stimulating Hormone 1.77 uIU/ml (0.358-3.74); Total Protein 5.9 G/DL (6.4-8.2)
[2022-03-20] MEDS: LEVOTHYROXINE 75 MCG TABLET PO SCH (06:49)
[2022-03-20] MEDS: PANTOPRAZOLE 40 MG TABLET PO SCH (09:22)
[2022-03-20] MEDS: ASPIRIN EC 81 MG TABLET PO SCH (09:22)
[2022-03-20] MEDS: DOCUSATE SODIUM 100 MG CAPSULE PO SCH ×2 (09:22→20:50)
[2022-03-20] MEDS: CARBIDOPA/LEVODOPA 25-100 MG TABLET PO SCH (09:22)
[2022-03-20] MEDS: MIDODRINE 5 MG TABLET PO SCH ×3 (09:22→20:50)
[2022-03-20 19:20] LABS: Hematocrit 28.5 VOL% (42.0-52.0); Hemoglobin 9.1 GM/DL (14.0-18.0)
[2022-03-20] MEDS: ATORVASTATIN 10 MG TABLET PO SCH (20:50)
[2022-03-21] MEDS: SODIUM CHLORIDE 0.9% 1,000 ML IV SCH ×4 (02:41→13:22)
[2022-03-21 05:55] LABS: Basophils # 0.1 10*3/uL (0.0-0.2); Basophils % 0.5 % (0.0-0.8); Eosinophils # 0.1 10*3/uL (0.0-0.87); Eosinophils % 0.7 % (0.00-10.9); Hematocrit 28.7 VOL% (42.0-52.0); Hemoglobin 9.2 GM/DL (14.0-18.0); Immature Granulocytes % 0.9 %; Immature Granulocytes Absolute 0.11 #; Lymphocytes # 1.3 10*3/uL (1.4-4.0); Lymphocytes % 10.2 % (21.2-54.2); Mean Corpuscular HGB Conc 32.1 GM/DL (32-36); Mean Corpuscular Volume 89.1 FL (87-102); Mean Platelet Volume 11.3 FL (9.6-12.0); Monocytes # 1.8 10*3/uL (0.11-0.8); Monocytes % 14.8 % (1.7-12.7); Neutrophils % 72.9 % (38.7-73.9); Platelet Count 155 T/CUMM (130-400); Red Blood Count 3.22 MC/CUMM (3.8-5.5); Red Cell Distribution Width 19.7 % (9.3-17.3); White Blood Count 12.3 T/CUMM (4-12)
[2022-03-21 06:03] LABS: Albumin 1.9 G/DL (3.4-5.0); Calcium 8.1 MG/DL (8.5-10.1); Osmolality,Calculated 283.3 MOS/KG (273-304); Potassium 4.9 MMOL/L (3.5-5.1); Total Protein 5.7 G/DL (6.4-8.2)
[2022-03-21 06:12] LABS: INR 2.3
[2022-03-21] MEDS: LEVOTHYROXINE 75 MCG TABLET PO SCH (06:12)
[2022-03-21] MEDS: MIDODRINE 5 MG TABLET PO SCH ×3 (10:28→21:37)
[2022-03-21] MEDS: PANTOPRAZOLE 40 MG TABLET PO SCH (10:28)
[2022-03-21] MEDS: DOCUSATE SODIUM 100 MG CAPSULE PO SCH ×2 (10:28→21:35)
[2022-03-21] MEDS: CARBIDOPA/LEVODOPA 25-100 MG TABLET PO SCH (10:28)
[2022-03-21] MEDS: ASPIRIN EC 81 MG TABLET PO SCH (10:28)
[2022-03-21] MEDS: ATORVASTATIN 10 MG TABLET PO SCH (21:35)
[2022-03-22 05:32] LABS: Basophils # 0.1 10*3/uL (0.0-0.2); Basophils % 0.8 % (0.0-0.8); Eosinophils # 0.2 10*3/uL (0.0-0.87); Eosinophils % 1.8 % (0.00-10.9); Hemoglobin 9.4 GM/DL (14.0-18.0); Immature Granulocytes Absolute 0.11 #; Lymphocytes # 1.9 10*3/uL (1.4-4.0); Lymphocytes % 16.5 % (21.2-54.2); Mean Corpuscular HGB Conc 32.4 GM/DL (32-36); Mean Corpuscular Volume 88.7 FL (87-102); Mean Platelet Volume 11.1 FL (9.6-12.0); Monocytes # 1.6 10*3/uL (0.11-0.8); Monocytes % 14.1 % (1.7-12.7); Neutrophils % 65.8 % (38.7-73.9); Platelet Count 160 T/CUMM (130-400); Red Blood Count 3.27 MC/CUMM (3.8-5.5); Red Cell Distribution Width 19.6 % (9.3-17.3); White Blood Count 11.3 T/CUMM (4-12)
[2022-03-22 05:40] LABS: Calcium 8.6 MG/DL (8.5-10.1); Osmolality,Calculated 279.4 MOS/KG (273-304); Potassium 4.8 MMOL/L (3.5-5.1)
[2022-03-22 05:48] LABS: Albumin 1.9 G/DL (3.4-5.0); Bilirubin,Total 2.3 MG/DL (0.20-1.00); Calcium 8.3 MG/DL (8.5-10.1); Osmolality,Calculated 281.3 MOS/KG (273-304); Potassium 5.2 MMOL/L (3.5-5.1); Total Protein 5.9 G/DL (6.4-8.2)
[2022-03-22] MEDS: LEVOTHYROXINE 75 MCG TABLET PO SCH (06:20)
[2022-03-22 07:56] LABS: INR 1.9; PT Patient Result 19.9 SECS (10.5-12.0)
[2022-03-22] MEDS: ASPIRIN EC 81 MG TABLET PO SCH (10:24)
[2022-03-22] MEDS: DOCUSATE SODIUM 100 MG CAPSULE PO SCH ×2 (10:25→20:34)
[2022-03-22] MEDS: PANTOPRAZOLE 40 MG TABLET PO SCH (10:26)
[2022-03-22] MEDS: CARBIDOPA/LEVODOPA 25-100 MG TABLET PO SCH (10:26)
[2022-03-22] MEDS: MIDODRINE 5 MG TABLET PO SCH ×3 (10:27→23:44)
[2022-03-22] MEDS: ATORVASTATIN 10 MG TABLET PO SCH (20:34)
[2022-03-23 05:16] LABS: Basophils # 0.1 10*3/uL (0.0-0.2); Basophils % 0.8 % (0.0-0.8); Eosinophils # 0.2 10*3/uL (0.0-0.87); Eosinophils % 1.8 % (0.00-10.9); Hematocrit 28.7 VOL% (42.0-52.0); Hemoglobin 9.5 GM/DL (14.0-18.0); Immature Granulocytes % 0.6 %; Immature Granulocytes Absolute 0.07 #; Lymphocytes # 1.4 10*3/uL (1.4-4.0); Lymphocytes % 11.4 % (21.2-54.2); Mean Corpuscular HGB Conc 33.1 GM/DL (32-36); Mean Platelet Volume 10.8 FL (9.6-12.0); Monocytes # 1.5 10*3/uL (0.11-0.8); Monocytes % 12.9 % (1.7-12.7); Neutrophils % 72.5 % (38.7-73.9); Platelet Count 170 T/CUMM (130-400); Red Cell Distribution Width 19.6 % (9.3-17.3); White Blood Count 11.8 T/CUMM (4-12)
[2022-03-23 05:35] LABS: INR 1.7; PT Patient Result 18.3 SECS (10.5-12.0)
[2022-03-23 05:41] LABS: Albumin 1.8 G/DL (3.4-5.0); Bilirubin,Total 2.1 MG/DL (0.20-1.00); Calcium 7.9 MG/DL (8.5-10.1); Osmolality,Calculated 276.7 MOS/KG (273-304); Total Protein 5.8 G/DL (6.4-8.2)
[2022-03-23] MEDS: LEVOTHYROXINE 75 MCG TABLET PO SCH (06:07)
[2022-03-23] MEDS: MIDODRINE 5 MG TABLET PO SCH ×3 (11:09→21:44)
[2022-03-23] MEDS ORDERED: LACTATED RINGERS 1,000 ML IV SCH ×2 (13:10→13:30)
[2022-03-23] MEDS ORDERED: LIDOCAINE 2% 5 ML VIAL ONE (14:32)
[2022-03-23] MEDS ORDERED: propofoL 200 MG/20 ML VIAL IV ONE (14:32)
[2022-03-23] MEDS ORDERED: GLYCOPYRROLATE 0.4 MG/2 ML VIAL ONE (14:32)
[2022-03-23] MEDS ORDERED: PHENYLEPHRINE 1 MG/10 ML SYRINGE IV ONE (14:42)
[2022-03-23] MEDS: PANTOPRAZOLE 40 MG TABLET PO SCH (15:33)
[2022-03-23] MEDS: ASPIRIN EC 81 MG TABLET PO SCH (15:33)
[2022-03-23] MEDS: DOCUSATE SODIUM 100 MG CAPSULE PO SCH ×2 (15:33→21:43)
[2022-03-23] MEDS: LACTULOSE 20 GM/30 ML UDCUP PO SCH ×2 (15:34→21:43)
[2022-03-23] MEDS: CARBIDOPA/LEVODOPA 25-100 MG TABLET PO SCH (15:34)
[2022-03-23] MEDS: ATORVASTATIN 10 MG TABLET PO SCH (21:43)
[2022-03-23] MEDS: AMIODARONE 200 MG TABLET PO SCH (21:44)
[2022-03-24 04:30] LABS: Basophils # 0.1 10*3/uL (0.0-0.2); Basophils % 0.7 % (0.0-0.8); Eosinophils # 0.3 10*3/uL (0.0-0.87); Eosinophils % 2.4 % (0.00-10.9); Hematocrit 29.2 VOL% (42.0-52.0); Hemoglobin 9.3 GM/DL (14.0-18.0); Immature Granulocytes % 0.6 %; Immature Granulocytes Absolute 0.06 #; Lymphocytes # 1.3 10*3/uL (1.4-4.0); Lymphocytes % 12.7 % (21.2-54.2); Mean Corpuscular HGB Conc 31.8 GM/DL (32-36); Mean Corpuscular Volume 88.8 FL (87-102); Mean Platelet Volume 10.9 FL (9.6-12.0); Monocytes # 1.4 10*3/uL (0.11-0.8); Neutrophils % 69.6 % (38.7-73.9); Platelet Count 187 T/CUMM (130-400); Red Blood Count 3.29 MC/CUMM (3.8-5.5); Red Cell Distribution Width 19.8 % (9.3-17.3); White Blood Count 10.3 T/CUMM (4-12)
[2022-03-24 05:00] LABS: Bilirubin,Total 2.8 MG/DL (0.20-1.00); Calcium 8.7 MG/DL (8.5-10.1); Osmolality,Calculated 275.7 MOS/KG (273-304); Potassium 4.6 MMOL/L (3.5-5.1); Total Protein 6.1 G/DL (6.4-8.2)
[2022-03-24] MEDS: LEVOTHYROXINE 75 MCG TABLET PO SCH (06:34)
[2022-03-24] MEDS: LACTULOSE 20 GM/30 ML UDCUP PO SCH ×2 (09:02→20:36)
[2022-03-24] MEDS: AMIODARONE 200 MG TABLET PO SCH ×2 (09:02→20:38)
[2022-03-24] MEDS: DOCUSATE SODIUM 100 MG CAPSULE PO SCH ×2 (09:03→20:36)
[2022-03-24] MEDS: CARBIDOPA/LEVODOPA 25-100 MG TABLET PO SCH (09:03)
[2022-03-24] MEDS: ASPIRIN EC 81 MG TABLET PO SCH (09:03)
[2022-03-24] MEDS: MIDODRINE 5 MG TABLET PO SCH ×3 (09:03→20:45)
[2022-03-24] MEDS: CHOLECALCIFEROL 1,000 UNIT TABLET PO SCH (09:03)
[2022-03-24] MEDS: PANTOPRAZOLE 40 MG TABLET PO SCH (09:05)
[2022-03-24] MEDS: WARFARIN 2.5 MG TABLET PO SCH (17:06)
[2022-03-25 04:42] LABS: Basophils # 0.1 10*3/uL (0.0-0.2); Basophils % 0.8 % (0.0-0.8); Eosinophils # 0.3 10*3/uL (0.0-0.87); Eosinophils % 2.4 % (0.00-10.9); Hematocrit 29.2 VOL% (42.0-52.0); Hemoglobin 9.1 GM/DL (14.0-18.0); Immature Granulocytes % 0.7 %; Immature Granulocytes Absolute 0.07 #; Lymphocytes # 1.9 10*3/uL (1.4-4.0); Lymphocytes % 17.3 % (21.2-54.2); Mean Corpuscular HGB Conc 31.2 GM/DL (32-36); Mean Corpuscular Volume 89.6 FL (87-102); Mean Platelet Volume 9.9 FL (9.6-12.0); Monocytes # 1.5 10*3/uL (0.11-0.8); Monocytes % 13.9 % (1.7-12.7); Neutrophils % 64.9 % (38.7-73.9); Platelet Count 168 T/CUMM (130-400); Red Blood Count 3.26 MC/CUMM (3.8-5.5); Red Cell Distribution Width 20.1 % (9.3-17.3); White Blood Count 10.7 T/CUMM (4-12)
[2022-03-25 05:04] LABS: INR 1.5; PT Patient Result 16.2 SECS (10.5-12.0)
[2022-03-25 05:08] LABS: Albumin 1.8 G/DL (3.4-5.0); Bilirubin,Total 2.4 MG/DL (0.20-1.00); Calcium 8.2 MG/DL (8.5-10.1); Osmolality,Calculated 278.5 MOS/KG (273-304); Potassium 4.4 MMOL/L (3.5-5.1); Total Protein 5.8 G/DL (6.4-8.2)
[2022-03-25] MEDS: LEVOTHYROXINE 75 MCG TABLET PO SCH (06:24)
[2022-03-25] MEDS: MIDODRINE 5 MG TABLET PO SCH (09:12)
[2022-03-25] MEDS: PANTOPRAZOLE 40 MG TABLET PO SCH (09:13)
[2022-03-25] MEDS: CHOLECALCIFEROL 1,000 UNIT TABLET PO SCH (09:13)
[2022-03-25] MEDS: CARBIDOPA/LEVODOPA 25-100 MG TABLET PO SCH (09:13)
[2022-03-25] MEDS: LACTULOSE 20 GM/30 ML UDCUP PO SCH (09:13)
[2022-03-25] MEDS: DOCUSATE SODIUM 100 MG CAPSULE PO SCH (09:13)
[2022-03-25] MEDS: ASPIRIN EC 81 MG TABLET PO SCH (09:13)
[2022-03-25] MEDS: AMIODARONE 200 MG TABLET PO SCH (09:13)
[2022-03-25 10:49] VITALS: BP 111/65
== END 2022-03-25 10:13 | disposition home or self-care (01) | DRG 312 ==
LOC: EDUNIT# → EDBD → N.ED 15:53 → N.EDINP 19:30 → N.TELES 23:08
PROVIDERS: ADMIT Family Medicine; ATTEND Family Medicine